=== PATIENT | female | born 1940 | race Caucasian/White ===

== ENCOUNTER → 2017-01-14 | Outpatient (CLI) | payer MEDICARE, OTHER ==
[~2017-01-14] MED LIST: ACET-2422 PO; ALEN70TA47 PO; CALC-857 PO; DOCU100C37 PO; EYE VISION PO; HYDR-3820 PO; LISI-552 PO; METO-272 PO; NF-MAG64T PO; VIT1CAPS9 PO; WARF2.5T82 PO
--- NOTE | 2017-01-14 13:33 | Diagnostic Imaging Report ---
PROCEDURE: US Thyroid. TECHNIQUE: Multiple real-time grayscale images were obtained of the thyroid in various projections. INDICATION: Followup thyroid nodules noted on outside MRI. Comparison: None. DISCUSSION: The thyroid gland is enlarged. The right thyroid measures 5.8 x 2.6 x 2.4 cm. The left thyroid measures 4.6 x 1.2 x 1.7 cm. An isoechoic solid nodule within the right thyroid lobe measures 1.5 x 1.2 x 1.7 cm and is indeterminate by ultrasound criteria. No internal color Doppler blood flow or suspicious microcalcifications. A 5 mm cyst within the right thyroid lobe is statistically benign. A 1 cm hypoechoic solid nodule with brisk internal color Doppler blood flow is located within the left thyroid gland. No abnormal adjacent lymph node is identified. IMPRESSION: Enlargement of the thyroid gland with dominant bilateral thyroid nodules. At a minimum, recommend a 6 month sonographic followup to document stability. A thyroid uptake scan could also be performed to assess for a hot or cold nodule. The nodule on the right is large enough for an ultrasound guided fine needle aspiration if clinically indicated. The nodule on the left is not large enough for aspiration. Dictated by: Dictated on workstation # [id number]
== END ==
LOC: RAD 11:48
PROVIDERS: ATTEND Orthopaedic Surgery
DX: E04.2 Nontoxic multinodular goiter (principal)
CPT/HCPCS: 76536

== ENCOUNTER → 2017-02-22 | Outpatient (CLI) | payer MEDICARE, OTHER ==
--- NOTE | 2017-02-27 08:24 | ECHOCARDIOGRAPHY REPORT ---
DATE OF SERVICE: 02/22/2017 ATTENDING PHYSICIAN: Dr. Hernandez. ORDERING PHYSICIAN: Dr. Hernandez. PRIMARY PHYSICIAN: Dr. Lawler. INDICATION: Atrial fibrillation, shortness of breath, hypertension. FINDINGS: 1. Sinus rhythm. 2. Left atrial dimensions are enlarged. Right atrial enlargement is also noted. 3. Aortic root dimensions are normal. 4. Left ventricular systolic function is 60%. Mild LVH is present. The diastolic interventricular septal diameter 1.2 cm. 5. There are no wall motion abnormalities. 6. Mild right ventricular enlargement and right atrial enlargement are noted. 7. There is no evidence of pericardial effusion. 8. Mild diastolic dysfunction. 9. IVC is 1.4 cm, which is normal. VALVULAR STRUCTURE OF THE HEART: Mild tricuspid regurgitation with RVSP of 24 mmHg. Mild mitral regurgitation. No significant aortic or pulmonic valve pathology. CONCLUSION: 1. Normal left ventricular ejection fraction with ejection fraction of 60%. 2. Mild concentric left ventricular hypertrophy with left atrial enlargement. 3. Mild right ventricular enlargement and right atrial enlargement. 4. Mild diastolic dysfunction. 5. There is no significant valvular heart disease. 6. Normal PA pressure. Job ID: [id number] DocumentID: [id number] Dictated Date: 02/25/2017 14:23:20 Software Support Engineer Date: 02/25/2017 17:44:33 Dictated By: RAJAT HERNANDEZ MD
== END ==
LOC: CARD 09:29
PROVIDERS: ATTEND Internal Medicine Interventional Cardiology
DX: I48.91 Unspecified atrial fibrillation (principal); I10 Essential (primary) hypertension; R06.02 Shortness of breath
CPT/HCPCS: 93306

== ENCOUNTER → 2017-02-28 | Outpatient (CLI) | payer MEDICARE, OTHER ==
[~2017-02-28] VITALS: Ht 162.6 cm; Wt 74.8 kg
[~2017-02-28] MED LIST changes: +REGADENOSON 0.4 MG/5 ML SYR (LEXISCAN) IV ONE
[2017-02-28] MEDS: CATHETER FLUSH 10 ML SYR IV PRN ×2 (07:54→09:27)
[2017-02-28 09:27] VITALS: BP 154/75
--- NOTE | 2017-03-01 12:50 | STRESS TEST ---
DATE OF SERVICE: 02/28/2017 PHARMACOLOGICAL NUCLEAR STRESS TEST PRIMARY PHYSICIAN: Dr. Lawler. INDICATION: Atrial fibrillation, hypertension, shortness of breath. PROCEDURE DETAILS: The patient was brought to the stress lab after informed consent was taken. The stress test was performed according to the Lexiscan protocol. A 0.4 mg of IV Lexiscan was given. Low grade exercise was performed. Baseline EKG showed sinus rhythm. Heart rate sinus rhythm at 54 BPM. There is mild baseline ST depression noted in the inferior leads. Maximum heart rate is 83 BPM and blood pressure is 154/75 mmHg. There was no significant worsening of ST depression. There was no chest pain. There were no arrhythmias. Myoview 10.60 mCi were given for rest imaging and 30.2 mCi of Myoview were given for stress imaging. Review of the myocardial perfusion imaging shows a TID of 1.02. Ejection fraction of 66%. There is a small mild intensity reversible defect in the anterior wall. However, there is no wall motion abnormality. SSS is 7. SRS is 3 and SDS is 3. CONCLUSION: 1. Pharmacological stress test is negative for ischemia. 2. There is a small reversible defect in the anterior wall; however, with normal wall motion in the anterior wall. This could be an artifact. Clinical correlation is recommended. Job ID: [id number] DocumentID: [id number] Dictated Date: 03/01/2017 09:28:21 Lacquer Pin Press Operator Date: 03/01/2017 10:50:28 Dictated By: RAJAT NGO MD
== END ==
LOC: CARD 07:24
PROVIDERS: ATTEND Internal Medicine Interventional Cardiology
DX: I48.91 Unspecified atrial fibrillation (principal); I10 Essential (primary) hypertension; R06.02 Shortness of breath
CPT/HCPCS: 78452; 93017

== ENCOUNTER 2017-10-18 09:28 | Outpatient (RCR) | payer MEDICARE, OTHER ==
[~2017-10-18 09:28] MED LIST changes: -METO-272 PO; +METO-370 PO; -REGADENOSON 0.4 MG/5 ML SYR (LEXISCAN) IV ONE
[2017-10-22] MEDS ORDERED: FURO20TA4 PO (09:08)
[2017-10-22] MEDS ORDERED: BENZ200C51 PO (09:08)
[2017-10-22] MEDS ORDERED: AMLO5TAB2 PO (09:09)
[2017-10-22] MEDS ORDERED: RIVA20TA PO (09:09)
[2017-10-22] MEDS ORDERED: LISI40TA PO (14:16)
[2017-10-26] MEDS ORDERED: DILT240C63 PO (11:15)
[2017-10-26] MEDS ORDERED: Sotalol Hcl PO (11:15)
[2017-10-31] MEDS ORDERED: SOTA80TA PO (11:55)
[2017-10-31] MEDS ORDERED: DILT240C53 PO (11:56)
[2017-10-31] MEDS ORDERED: BENZ200C51 PO (11:59)
[2017-10-31] MEDS ORDERED: ACET-2650 PO ×2 (12:01)
[2017-10-31] MEDS ORDERED: MAGN64TA11 PO (12:02)
[2017-11-01] MEDS ORDERED: Sotalol Hcl PO (13:12)
[2017-11-01] MEDS ORDERED: CEPH-507 PO (13:13)
== END 2017-10-29 14:30 | disposition home or self-care (01) ==
PROVIDERS: ATTEND Physician Assistant
DX: M54.2 Cervicalgia (principal)

== ENCOUNTER 2017-10-22 08:10 | Inpatient (IN) | payer MEDICARE, OTHER ==
[2017-10-22] VITALS (20 sets, daily range): BP systolic 88–138; BP diastolic 44–88
[~2017-10-22] VITALS: Ht 162.6 cm; Wt 73.9 kg
[2017-10-22] MEDS ORDERED: FURO20TA4 PO (09:08)
[2017-10-22] MEDS ORDERED: BENZ200C51 PO (09:08)
[2017-10-22] MEDS ORDERED: AMLO5TAB2 PO (09:09)
[2017-10-22] MEDS ORDERED: RIVA20TA PO (09:09)
[2017-10-22] MEDS ORDERED: LIDOCAINE 1% INJ 50 ML (XYLOCAINE) VIAL ONE (09:32)
[2017-10-22] MEDS ORDERED: proPOfol 200 MG/20 ML (DIPRIVAN) VIAL IV ONE (09:34)
--- NOTE | 2017-10-22 09:57 | Progress Note-Standard ---
Standard Progress Note Progress Notes/Assess & Plan Date Seen by Provider: Oct 22, 2017 Time Seen by Provider: 09:50 Progress/Assessment & Plan sedation for cardioversion. 40 mg propofol and 2mg versed given. start time 50 end time 58. tolerated procedure well. KIKO ARTHUR CRNA Oct 22, 2017 09:57
[2017-10-22] MEDS ORDERED: SOTALOL 80 MG (BETAPACE) TAB PO ONE (11:15)
[2017-10-22] MEDS ORDERED: NS IV 1000 ML 1,000 ML IV SCH (11:45)
[2017-10-22] MEDS ORDERED: PATIENT MAY USE OWN MEDS, ALL PO SCH (11:45)
--- NOTE | 2017-10-22 11:56 | History & Physicial-Cardiolgy ---
HPI-Cardiology Cardiology Consultation: Date of Consultation 10/22/17 Date of Admission Attending Physician Dylan Hernandez MD Admitting Physician Todd Lawler MD Consulting Physician Dylan HERNANDEZ MD HPI: Time Seen by Provider: 11:00 Chief Complaint: Atrial fibrillation with rapid ventricular rate This is a 77-year-old lady who is a patient of Dr. Lawler. She has previous history of cervical spine surgery. She also has history of atrial fibrillation which started in 2001. She has history of hypertension. She has rare episodes of shortness of breath. No chest pain. She usually has atrial fibrillation episodes are around once a month and takes an extra dose of metoprolol which helps. She has been complaining of shortness of breath and fatigue in the last few days. She is also increased weight for which she saw Dr. Lawler and was started on Lasix. She denies any significant palpitations. Review of Systems-Cardiology Review of Systems Constitutional: No As described under HPI, No no symptoms reported, No chills, No fever, No lightheadedness, malaise, No tiredness, No weight loss, weight gain , No other Eyes: No As described under HPI, No no symptoms reported, No blindness, No blurred vision, No contact lenses, No drainage, No decreased acuity, No foreign body sensation, No glasses, No inflammation, No pain, No photophobia, No previous injury, No shadows, No tunnel vision, No other, No vision change Ears/Nose/Throat: No As described under HPI, No no symptoms reported, No chronic hearing loss, No epistaxis, No ear discharge, No ear pain, No loose teeth, No mouth pain, No mouth swelling, No nasal drainage, No nose pain, No recent hearing loss, No throat pain, No throat swelling, No ulcerations, No other Respiratory: shortness of breath Cardiovascular: No no symptoms reported, No As described under HPI, No chest pain, No edema, No irregular heart rate, No lightheadedness, No palpitations, No syncope, No other Gastrointestinal: No no symptoms reported, No As described under HPI, No abdomen distended, No abdominal pain, No blood streaked bowels, No constipation , No diarrhea, No difficulty swallowing, No nausea, No poor appetite, No poor fluid intake, No rectal bleeding, No vomiting, No other, No nausea/vomiting/ diarrhea, No stool coloration changes Genitourinary: No no symptoms reported, No As described under HPI, No burning, No dysuria, No discharge, No frequency, No flank pain, No hematuria, No incontinence, No pain, No urgency, No other, No urine frequency changes, No urine coloration changes Musculoskeletal: No no symptoms reported, No As describe under HPI, No back pain, No gout, No joint pain, No joint swelling, No muscle pain, No muscle stiffness, No neck pain, No other Skin: No no symptoms reported, No As described under HPI, No change in color, No change in hair/nails, No dryness, No lesions, No lumps, No rash, No other, No skin related problems, No ulcerations, No rash on exposed areas, No ulcerations on exposed areas Psychiatric/Neurological: No no symptoms reported, No As described under HPI, No anxiety, No depression, No emotional problems, No headache, No numbness, No pre-existing deficit, No seizure, No tingling, No tremors, No weakness, No other , No focal weakness, No syncope Hematologic: No no symptoms reported, No As described under HPI, No anemia, No blood clots, No easy bleeding, No easy bruising, No swollen glands, No other, No bleeding abnormalities KAH-Vlxbpy-Xyjkly Hx Patient Social History Smoking Status: Never a Smoker Recent Foreign Travel: No Recent Infectious Disease Expo: No Immunizations Up To Date Tetanus Booster (TDap): More than 5yrs Date of Pneumonia Vaccine: Jun 22, 2013 Date of Influenza Vaccine: Jul 22, 2017 Past Medical History PMH As described under Assessment. Family Medical History Family History: Cataracts 19 FATHER Completed stroke 19 MOTHER FH: prostate cancer Hypertension 19 FATHER Osteoarthritis 19 MOTHER Prostate cancer 19 FATHER Allergies and Home Medications Allergies Coded Allergies: No Known Drug Allergies (Unverified , 08/03/11) Home Medications Alendronate Sodium 70 Mg Tablet, 70 MG PO WEEKLY ON saturday, (Reported) Amlodipine Besylate 5 Mg Tablet, 5 MG PO DAILY, (Reported) Benzonatate 200 Mg Capsule, 200 MG PO q 8 hours PRN for COUGH, (Reported) Furosemide 20 Mg Tablet, 20 MG PO DAILY, (Reported) Lisinopril 20 Mg Tablet, 40 MG PO DAILY, (Reported) take two pills for total of 40 mg Magnesium Chloride 64 Mg Tab, 64 MG PO DAILY, (Reported) Metoprolol Succinate 50 Mg Tab.er.24h, 25 MG PO DAILY, (Reported) take half tablet for 25 mg Rivaroxaban 20 Mg Tablet, 20 MG PO DAILY, (Reported) Vit C/Vit E/Lutein/Min/[place]-3 1 Each Capsule, 1 CAP PO DAILY, (Reported) Physical Exam-Cardiology Physical Exam Vital Signs/I&O Vital Sign - Last 12Hours 10/22/17 10/22/17 10/22/17 10/22/17 08:56 09:40 09:45 09:50 Temp 98.9 Pulse 137 142 148 149 Resp 20 B/P (MAP) 117/85 (96) 122/78 (93) 104/72 (83) 88/60 (69) Pulse Ox 98 100 100 99 O2 Delivery Nasal Cannula Nasal Cannula Nasal Cannula O2 Flow Rate 3.00 3.00 3.00 10/22/17 09:55 Pulse 136 B/P (MAP) 96/66 (76) Pulse Ox 98 O2 Delivery Nasal Cannula O2 Flow Rate 3.00 Capillary Refill : Constitutional: No appears stated age, No AAO x 3, No apparent distress, No PERRL, No well-developed, No well-nourished, No other HEENT: No PERRL, No normal ENT inspection, No TMs normal, No pharynx normal, No scleral icterus (R), No scleral icterus (L), No pale conjunctivae (R), No pale conjunctivae (L), No photophobia, No TM abnormal (R), No TM abnormal (L), No pharyngeal erythema, No tonsillar exudate, No other, No discharge, No EOMI, No hearing is well preserved, No hard of hearing, No oral hygience is good, No ulceration, No xanthelasmas are seen Neck: No non-tender, No full range of motion, No supple, No normal inspection, No carotid bruit, No limited range of motion, No lymphadenopathy (R), No lymphadenopathy (L), No tender lateral, No tender midline, No thyromegaly, No other, No carotid pulses are 2 + bilaterally, No with good upstrokes Respiratory: No accessory muscle use, No respiratory distress, No chest tender , No chest expansion is symmetric, No chest is bilaterally symmetric, No lungs clear to percussion, No lungs clear to auscultation, No crackles, No rhonchi, No rales, No stridor, No wheezing, No pleural rub, No other Cardiovascular: irregularly irregular, tachycardia, S1 and S2 Gastrointestinal: No tender, No soft, No round, No distended, No pulsatile mass , No organomegaly, No guarding, No rebound, No tenderness, No hernia, No mass, No audible bowel sounds, No abnormal bowel sounds, No abdominal bruits, No spleenomegaly, No other Rectal: deferred Extremities: No normal range of motion, No non-tender, No normal inspection, No pedal edema, No calf tenderness, No normal capillary refill, No pelvis stable , No calf tenderness, No inflammation, No pedal edema, No slow capillary refill , No swelling, No other, No abrasion, No clubbing, No cyanosis, No ecchymosis, No laceration, No no lower extremity edema bilateral, No significant edema, No tenderness, No wound Neurologic/Psychiatric: No core fitter II-XII nml as tested, No no motor/sensory deficits, No alert, No normal mood/affect, No oriented x 3, No abnormal cerebellar tests, No abnormal core fitter II-XII, No abnormal gait, No aphasia, No EOM palsy, No facial droop, No motor weakness, No sensory deficit, No depressed affect, No disoriented x 3, No other, No grossly intact, No power is 5/5 both on sides Skin: No normal color, No warm/dry, No cyanosis, No cool, No diaphoresis, No damp, No ecchymosis, No jaundice, No mottled, No pallor, No rash, No tattoos/ piercings, No ulcerations, No rash on exposed areas, No ulcerations on exposed areas, No other ECG Impression ECG Initial ECG Impression: Atrial Fibrillation w/RVR A/P-Cardiology Assessment/Admission Diagnosis Atrial fibrillation with rapid ventricular rate, Hypertension, Sinus bradycardia Plan 3 attempts of electrical cardioversion which did not convert the patient to sinus rhythm. Implantable loop recorder done since we need rhythm control and long-term surveillance of atrial fibrillation. She'll be admitted for IV Cardizem and sotalol loading. We'll start with 80 mg of sotalol twice a day. EKGs will be done before sotalol and 2 Vin after. We will attempt cardioversion again on sotalol. She will continue beta jaspreet as well as Xarelto. Ex Hypertension will be treated with amlodipine. Lower extremity edema: Continue Lasix. Dylan HERNANDEZ MD Oct 22, 2017 11:56 am
--- OUTSIDE RECORDS SUMMARY | 2017-10-22 12:01 | XMS REPORT | Continuity of Care Document ---
Author Author [facility] Organization [facility] Address Unknown Phone Unavailable Allergies Active Description Code Type Severity Reaction Onset Reported/Identified Relationship to Patient Clinical Status Yes No Known Drug Allergies [id number] Drug Allergy Unknown N/A 08/03/2011 Medications There is no data. Problems Date Dx Coded Attending Type Code Diagnosis Diagnosed By 08/29/1009 SAVANNAH ENCARNACION DO Ot Z47.1 08/29/1009 SAVANNAH ENCARNACION DO Ot Z96.651 08/03/2011 Ot 455.0 INT HEMORRHOID W/O COMPL 08/03/2011 Ot 562.10 DIVERTICULOSIS COLON (W/O MENT OF HEMORR 08/03/2011 Ot 564.00 UNSPEC CONSTIPATION 08/03/2011 Ot 792.1 ABN FIND- STOOL CONTENTS 02/14/2015 Ot V76.12 02/14/2015 Ot 733.00 02/14/2015 Ot V49.81 02/14/2015 Ot V76.12 02/14/2015 Ot V82.81 02/14/2015 Ot V76.12 02/14/2015 ARTI KELSEY, KAMILAH Garcia Ot V76.12 02/14/2015 ARTI KELSEY, KAMILAH Garcia Ot 733.00 02/14/2015 ARTI KELSEY, KAMILAH Garcia Ot V17.81 02/14/2015 ARTI KELSEY, KAMILAH Garcia Ot V82.81 02/14/2015 ARTI KELSEY, KAMILAH Garcia Ot V76.12 02/14/2015 ARTI KELSEY, KAMILAH Garcia Ot 427.9 02/28/2015 ARTI KELSEY, KAMILAH Garcia Ot 427.9 03/15/2015 ARTI KELSEY, KAMILAH Garcia Ot 427.9 03/22/2015 ARTI KELSEY, KAMILAH Garcia Ot 427.31 03/24/2015 ARTI KELSEY, KAMILAH Garcia Ot 427.31 06/21/2015 Ot V76.12 06/21/2015 Ot 733.00 06/21/2015 Ot V49.81 06/21/2015 Ot V76.12 06/21/2015 Ot V82.81 06/21/2015 Ot V76.12 06/21/2015 ARTI KELSEY, KAMILAH Garcia Ot V76.12 06/21/2015 ARTI KELSEY, KAMILAH Garcia Ot 733.00 06/21/2015 ARTI KELSEY, KAMILAH Garcia Ot V17.81 06/21/2015 ARTI KELSEY, KAMILAH Garcia Ot V82.81 06/21/2015 ARTI KELSEY, KAMILAH Garcia Ot V76.12 06/21/2015 ARTI KELSEY, KAMILAH Garcia Ot 427.9 06/21/2015 ARTI KELSEY, KAMILAH Garcia Ot 427.31 06/21/2015 SHASHANK DO, SAVANNAH F Ot V58.61 06/21/2015 SHASHANK DO, SAVANNAH F Ot V58.83 06/21/2015 SHASHANK DO, SAVANNAH F Ot V43.65 06/21/2015 SHASHANK DO, SAVANNAH F Ot V54.81 06/21/2015 SHASHANK DO, SAVANNAH F Ot V57.1 06/22/2015 SHASHANK DO, SAVANNAH F Ot V58.61 06/22/2015 SHASHANK DO, SAVANNAH F Ot V58.83 06/27/2015 ARTI KELSEY, KAMILAH Garcia Ot 285.1 06/27/2015 ARTI KELSEY, KAMILAH Garcia Ot 401.9 06/27/2015 ARTI KELSEY, KAMILAH Garcia Ot 427.31 06/27/2015 ARTI KELSEY, KAMILAH Garcia Ot 564.00 06/27/2015 ARTI KELSEY, KAMILAH Garcia Ot 716.90 06/27/2015 ARTI KELSEY, KAMILAH Garcia Ot 724.00 06/27/2015 ARTI KELSEY, KAMILAH Garcia Ot 728.89 06/27/2015 ARTI KELSEY, KAMILAH Garcia Ot 733.00 06/27/2015 ARTI KELSEY, KAMILAH Garcia Ot 787.01 06/27/2015 ARTI KELSEY, KAMILAH Garcia Ot 790.92 06/27/2015 ARTI KELSEY, KAMILAH Garcia Ot E934.2 06/27/2015 ARTI KELSEY, KAMILAH Garcia Ot V43.65 06/27/2015 ARTI KELSEY, KAMILAH Garcia Ot V58.61 06/28/2015 ARTI KELSEY, KAMILAH Garcia Ot 285.1 06/28/2015 ARTI KELSEY, KAMILAH Garcia Ot 401.9 06/28/2015 ARTI KELSEY, KAMILAH Garcia Ot 427.31 06/28/2015 ARTI KELSEY, KAMILAH Garcia Ot 564.00 06/28/2015 ARTI KELSEY, KAMILAH Garcia Ot 716.90 06/28/2015 ARTI KELSEY, KAMILAH Garcia Ot 724.00 06/28/2015 ARTI KELSEY, KAMILAH Garcia Ot 728.89 06/28/2015 ARTI KELSEY, KAMILAH Garcia Ot 733.00 06/28/2015 ARTI KELSEY, KAMILAH Garcia Ot 787.01 06/28/2015 ARTI KELSEY, KAMILAH Garcia Ot 790.92 06/28/2015 ARTI KELSEY, KAMILAH Garcia Ot E934.2 06/28/2015 ARTI KELSEY, KAMILAH Garcia Ot V43.65 06/28/2015 ARTI KELSEY, KAMILAH Garcia Ot V58.61 06/28/2015 ARTI KELSEY, KAMILAH Garcia Ot 285.1 06/28/2015 ARTI KELSEY, KAMILAH Garcia Ot 401.9 06/28/2015 ARTI KELSEY, KAMILAH Garcia Ot 427.31 06/28/2015 ARTI KELSEY, KAMILAH Garcia Ot 564.00 06/28/2015 ARTI KELSEY, KAMILAH Garcia Ot 716.90 06/28/2015 ARTI KELSEY, KAMILAH Garcia Ot 724.00 06/28/2015 ARTI KELSEY, KAMILAH Garcia Ot 728.89 06/28/2015 ARTI KELSEY, KAMILAH Garcia Ot 733.00 06/28/2015 ARTI KELSEY, KAMILAH Garcia Ot 787.01 06/28/2015 ARTI KELSEY, KAMILAH Garcia Ot 790.92 06/28/2015 ARTI KELSEY, KAMILAH Garcia Ot E934.2 06/28/2015 ARTI KELSEY, KAMILAH Garcia Ot V43.65 06/28/2015 ARTI KELSEY, KAMILAH Garcia Ot V58.61 06/29/2015 SHASHANK , SAVANNAH F Ot V43.65 KNEE JOINT REPLACEMENT STATUS 06/29/2015 SHASAHNK DO, SAVANNAH F Ot V54.81 AFTERCARE FOLLOWING JOINT REPLACEMENT 06/29/2015 SHASHANK COBB, SAVANNAH F Ot V57.1 PHYSICAL THERAPY NEC 06/29/2015 ARTI KELSEY, KAMILAH Garcia Ot 285.1 06/29/2015 ARTI KELSEY, KAMILAH Garcia Ot 401.9 06/29/2015 ARTI KELSEY, KAMILAH Garcia Ot 427.31 06/29/2015 ARTI KELSEY, KAMILAH Garcia Ot 564.00 06/29/2015 ARTI KELSEY, KAMILAH Garcia Ot 716.90 06/29/2015 KAMILAH CHI MD Ot 724.00 06/29/2015 KAMILAH CHI MD Ot 728.89 06/29/2015 KAMILAH CHI MD Ot 733.00 06/29/2015 KAMILAH CHI MD Ot 787.01 06/29/2015 KAMILAH CHI MD Ot 790.92 06/29/2015 KAMILAH CHI MD Ot E934.2 06/29/2015 KAMILAH CHI MD Ot V43.65 06/29/2015 KAMILAH CHI MD Ot V58.61 06/29/2015 SHASHANK DO, SAVANNAH F Ot V43.65 06/29/2015 SHASHANK DO, SAVANNAH F Ot V54.81 06/29/2015 SHASHANK DO, SAVANNAH F Ot V57.1 06/29/2015 ARTI KELSEY, KAMILAH Garcia Ot 285.1 AC POSTHEMORRHAG ANEMIA 06/29/2015 KAMILAH CHI MD Ot 401.9 HYPERTENSION NOS 06/29/2015 ARTI KELSEY, KAMILAH Garcia Ot 427.31 ATRIAL FIBRILLATION 06/29/2015 KAMILAH CHI MD Ot 564.00 UNSPEC CONSTIPATION 06/29/2015 KAMILAH CHI MD Ot 716.90 ARTHROPATHY NOS-UNSPEC 06/29/2015 KAMILAH CHI MD Ot 724.00 SPINAL STENOSIS NOS 06/29/2015 KAMILAH CHI MD Ot 728.89 MUSCLE/LIGAMENT DIS NEC 06/29/2015 KAMILAH CHI MD Ot 733.00 OSTEOPOROSIS NOS 06/29/2015 KAMILAH CHI MD Ot 787.01 NAUSEA WITH VOMITING 06/29/2015 KAMILAH CHI MD Ot 790.92 COAGULATION PROFILE, ABNORMAL 06/29/2015 KAMILAH CHI MD Ot E934.2 ADV EFF ANTICOAGULANTS 06/29/2015 KAMILAH CHI MD Ot V43.65 KNEE JOINT REPLACEMENT STATUS 06/29/2015 KAMILAH CHI MD Ot V58.61 ANTICOAGULANTS,LT,CURRENT USE 07/11/2015 SHASHANK DO, SAVANNAH F Ot V43.65 07/11/2015 SHASHANK DO, SAVANNAH F Ot V54.81 07/11/2015 SHASHANK DO, SAVANNAH F Ot V57.1 08/29/2015 SHASHANK DO, SAVANNAH F Ot Z47.1 08/29/2015 SHASHANK DO, SAVANNAH F Ot Z96.651 09/01/2015 SAVANNAH ENCARNACION DO Ot Z47.1 09/01/2015 SAVANNAH ENCARNACION DO Ot Z96.651 09/28/2015 SHASHANK COBB SAVANNAH Rodriguez Ot Z47.1 AFTERCARE FOLLOWING JOINT REPLACEMENT TAVARES 09/28/2015 SAVANNAH ENCARNACION DO Ot Z96.651 PRESENCE OF RIGHT ARTIFICIAL KNEE JOINT 01/14/2017 Ot V76.12 OTH SCREEN MAMMO-MALIGN NEOPLASM OF SILVER 01/14/2017 KAMILAH CHI MD Ot V76.12 OTH SCREEN MAMMO-MALIGN NEOPLASM OF SILVER 01/14/2017 KAMILAH CHI MD Ot 733.00 OSTEOPOROSIS NOS 01/14/2017 ARTI KELSEY, KAMILAH Garcia Ot V17.81 FAMILY HISTORY, OSTEOPOROSIS 01/14/2017 KAMILAH CHI MD Ot V82.81 SCREENING FOR OSTEOPOROSIS 01/14/2017 KAMILAH CHI MD Ot V76.12 OTH SCREEN MAMMO-MALIGN NEOPLASM OF SILVER 01/14/2017 KAMILAH CHI MD Ot 427.9 CARDIAC DYSRHYTHMIA NOS 01/14/2017 KAMILAH CHI MD Ot 427.31 ATRIAL FIBRILLATION 01/14/2017 SHASHANK COBB SAVANNAH Rodriguez Ot V58.61 ANTICOAGULANTS,LT,CURRENT USE 01/14/2017 SHASHANK COBB SAVANNAH Rodriguez Ot V58.83 ENCOUNTER FOR THERAPEUTIC DRUG MONITORIN 02/12/2017 MODESTO MATHIAS DO Ot E04.2 NONTOXIC MULTINODULAR GOITER 03/01/2017 Dylan NGO MD Ot I10 ESSENTIAL (PRIMARY) HYPERTENSION 03/01/2017 Dylan NGO MD Ot I48.91 UNSPECIFIED ATRIAL FIBRILLATION 03/01/2017 Dylan NGO MD Ot R06.02 SHORTNESS OF BREATH 03/01/2017 Dylan NGO MD Ot I10 ESSENTIAL (PRIMARY) HYPERTENSION 03/01/2017 Dylan NGO MD Ot I48.91 UNSPECIFIED ATRIAL FIBRILLATION 03/01/2017 Dylan NGO MD Ot R06.02 SHORTNESS OF BREATH 03/01/2017 Dylan NGO MD Ot I10 ESSENTIAL (PRIMARY) HYPERTENSION 03/01/2017 Dylan NGO MD Ot I48.91 UNSPECIFIED ATRIAL FIBRILLATION 03/01/2017 HUBER KELSEY, Dylan MEEK Ot R06.02 SHORTNESS OF BREATH 03/01/2017 Dylan NGO MD Ot I10 ESSENTIAL (PRIMARY) HYPERTENSION 03/01/2017 Dylan NGO MD Ot I48.91 UNSPECIFIED ATRIAL FIBRILLATION 03/01/2017 Dylan NGO MD Ot R06.02 SHORTNESS OF BREATH 03/01/2017 Dylan NGO MD Ot I10 ESSENTIAL (PRIMARY) HYPERTENSION 03/01/2017 Dylan NGO MD Ot I48.91 UNSPECIFIED ATRIAL FIBRILLATION 03/01/2017 Dylan NGO MD Ot R06.02 SHORTNESS OF BREATH 03/15/2017 Dylan NGO MD Ot I10 ESSENTIAL (PRIMARY) HYPERTENSION 03/15/2017 Dylan NGO MD Ot I48.91 UNSPECIFIED ATRIAL FIBRILLATION 03/15/2017 Dylan NGO MD Ot R06.02 SHORTNESS OF BREATH 03/21/2017 Dylan NGO MD Ot I10 ESSENTIAL (PRIMARY) HYPERTENSION 03/21/2017 Dylan NGO MD Ot I48.91 UNSPECIFIED ATRIAL FIBRILLATION 03/21/2017 Dylan NGO MD Ot R06.02 SHORTNESS OF BREATH 10/10/2017 CARLOS GRADY Ot M54.2 CERVICALGIA Procedures There is no data. Results There is no data. Encounters ACCT No. Visit Date/Time Discharge Status Pt. Type Provider Facility Loc./Unit Complaint [id number] 10/18/2017 09:28:00 10/18/2017 23:59:59 CLS Outpatient CARLOS GRADY [facility] REHAB NECK PAIN [id number] 02/28/2017 07:24:00 02/28/2017 23:59:59 CLS Outpatient Dylan NGO MD [facility] CARD I48.91,I10,R06.02 [id number] 02/22/2017 09:29:00 02/22/2017 23:59:59 CLS Outpatient Dylan NGO MD [facility] CARD I48.91,I10,R06.02 [id number] 01/14/2017 11:48:00 01/14/2017 23:59:59 CLS Outpatient MODESTO MATHIAS DO [facility] RAD NODULES [id number] 09/28/2015 09:30:00 09/28/2015 10:10:00 DIS Outpatient SHASHANK DO SAVANNAH Rodriguez [facility] REHAB DJD S/P L TKR [id number] 06/21/2015 23:15:00 06/29/2015 16:49:00 DIS Inpatient KAMILAH CHI MD [facility] 4TH INTRACTABLE L SCIATICA PAIN;EXCESSIVE BRUISING; [id number] 06/17/2015 12:53:00 06/29/2015 00:01:00 DIS Outpatient SHASHANK DO, SAVANNAH Rodriguez [facility] REHAB DJD S/P L TKR [id number] 06/02/2015 13:15:00 06/02/2015 23:59:59 CLS Outpatient SHASHANKSAVANNAH GRANADOS DO Jennifer [facility] HH ANTICOAG THERAPY [id number] 02/14/2015 10:06:00 02/14/2015 23:59:59 CLS Outpatient KAMILAH CHI MD [facility] CARD ACUTE AFIB [id number] 02/10/2015 10:49:00 02/10/2015 23:59:59 CLS Outpatient KAMILAH CHI MD [facility] CARD AFIB [id number] 05/13/2014 09:49:00 05/13/2014 23:59:59 CLS Outpatient KAMILAH CHI MD [facility] RAD SCREENING [id number] 03/04/2014 09:30:00 03/04/2014 23:59:59 CLS Outpatient KAMILAH CHI MD [facility] RAD OSTEOPOROSIS [id number] 05/07/2013 10:18:00 05/07/2013 23:59:59 CLS Outpatient KAMILAH CHI MD [facility] RAD SCREENING [id number] 10/22/2017 09:58:00 Document Registration [id number] 02/14/2015 10:05:00 Document Registration [id number] 04/28/2012 10:29:00 Document Registration [id number] 08/03/2011 07:46:00 Document Registration [id number] 04/26/2011 10:40:00 Document Registration
--- NOTE | 2017-10-22 13:02 | OPERATIVE REPORT ---
DATE OF SERVICE: 10/22/2017 CARDIOVERSION REPORT REFERRING PHYSICIAN: Todd Lawler M.D. PERFORMING PHYSICIAN: Luci Hernandez M.D. INDICATION: Atrial fibrillation with rapid ventricular rate. HISTORY: This is a 77-year-old lady with history of paroxysmal atrial fibrillation. However, she has been in sinus rhythm recently. However, she started complaining of fatigue and shortness of breath in the last couple of days and was found to be in atrial fibrillation with rapid ventricular rate. Her metoprolol dose was increased. No significant response was noted. She continues to be on uninterrupted oral anticoagulation therapy for at least a month. PROCEDURE IN DETAIL: The patient was brought to the clinical laboratory manager after informed consent was taken. Cardioversion was performed with anesthesia support. Three external 200 joule synchronized shocks were given; however, we were unsuccessful in converting the patient to sinus rhythm. The patient tolerated procedure well, did not have any complication. CONCLUSION: 1. Three shocks given for cardioversion; however, could not convert to sinus rhythm. 2. The patient will be admitted via the ER for sotalol initiation as well as Cardizem infusion. Job ID: [id number] DocumentID: [id number] Dictated Date: 10/22/2017 10:27:35 Placement Officer Date: 10/22/2017 13:02:07 Dictated By: LUCI HERNANDEZ MD MTDD
[2017-10-22] MEDS: DILTIAZEM IV SCH ×2 (13:04)
[2017-10-22] MEDS: DEXTROSE IV SCH ×2 (13:04)
--- NOTE | 2017-10-22 13:12 | OPERATIVE REPORT ---
DATE OF SERVICE: 10/22/2017 IMPLANTABLE LOOP RECORDER REPORT REFERRING PHYSICIAN: Todd Lawler M.D. PERFORMING PHYSICIAN: Luci Hernandez MD INDICATION: Long-term surveillance of atrial fibrillation. HISTORY: The patient is a 77-year-old lady with history of paroxysmal atrial fibrillation. She has presented with shortness of breath and fatigue in the last few days and was found to be in atrial fibrillation with rapid ventricular rate. The plan is of rhythm control to convert her into sinus rhythm and do long-term surveillance with an implantable loop recorder. PROCEDURE PERFORMED: Implantable loop recorder. PROCEDURE IN DETAIL: The patient was brought to the EP lab after informed consent was taken. She was draped and prepped in the usual sterile fashion. Lidocaine was given in the left sided 4th intercostal space. An implantable loop recorder from [employer] was implanted according to the protocol. The incision was closed with 2 nonabsorbable sutures. The patient tolerated the procedure well, did not have any complications. CONCLUSION: Successful implantation of a [employer] loop recorder. Job ID: [id number] DocumentID: [id number] Dictated Date: 10/22/2017 10:29:59 Senior Art Director Date: 10/22/2017 13:11:29 Dictated By: LUCI HERNANDEZ MD MTDD
[2017-10-22 13:58] LABS: HEMOGLOBIN 12.2 G/DL (11.5-16.0); MEAN PLATELET VOLUME 12.2 FL (7.4-10.4); RED BLOOD COUNT 4.51 10^6/uL (4.35-5.85); RED CELL DISTRIBUTION WIDTH 14.8 % (10.0-14.5); WHITE BLOOD COUNT 7.7 10^3/uL (4.3-11.0)
[2017-10-22 14:13] LABS: BUN/CREATININE RATIO 19; CALCIUM 8.9 MG/DL (8.5-10.1); CARBON DIOXIDE 23 MMOL/L (21-32); CHLORIDE 107 MMOL/L (98-107); CREATININE SERUM 0.81 MG/DL (0.60-1.30); GFR ESTIMATED > 60; GLUCOSE 103 MG/DL (70-105); POTASSIUM 3.6 MMOL/L (3.6-5.0); SODIUM 141 MMOL/L (135-145)
[2017-10-22] MEDS ORDERED: LISI40TA PO (14:16)
[2017-10-22] MEDS: NS IV 1000 ML 1,000 ML IV SCH (20:53)
[2017-10-23] VITALS (24 sets, daily range): BP systolic 96–122; BP diastolic 66–98
[2017-10-23] MEDS: DILTIAZEM IV SCH ×6 (01:59→17:58)
[2017-10-23] MEDS: DEXTROSE IV SCH ×6 (01:59→17:58)
[2017-10-23] MEDS: NS IV 1000 ML 1,000 ML IV SCH (06:15)
[2017-10-23] MEDS ORDERED: RIVAROXABAN 20 MG TABLET (XARELTO) PO SCH (08:00)
[2017-10-23] MEDS ORDERED: meTOproloL SUCCINATE 50 MG (TOPROL XL) TAB PO SCH (09:00)
[2017-10-23] MEDS: lisINopril 20 MG (ZESTRIL) TAB PO SCH (09:35)
[2017-10-23] MEDS: amLODIPine 5 MG (NORVASC) TAB PO SCH (09:36)
[2017-10-23] MEDS: FUROSEMIDE 20 MG (LASIX) TAB PO SCH (09:36)
--- NOTE | 2017-10-23 09:55 | Cardiology Progress Note ---
Cardiology SOAP Progress Note Subjective: No significant cardiac symptoms. Objective: I&O/Vital Signs Vital Sign - Last 12Hours 10/22/17 10/23/17 10/23/17 10/23/17 23:00 00:00 01:00 01:00 Pulse 111 116 109 106 Resp 32 26 37 B/P (MAP) 110/71 (84) 115/95 (102) 122/89 (100) Pulse Ox 93 92 93 O2 Delivery Room Air Room Air Room Air 10/23/17 10/23/17 10/23/17 10/23/17 01:59 02:00 03:00 04:00 Pulse 94 110 100 93 Resp 32 43 38 B/P (MAP) 122/89 114/88 (97) 114/81 (92) 113/74 (87) Pulse Ox 92 93 94 O2 Delivery Room Air Room Air Room Air 10/23/17 10/23/17 10/23/17 10/23/17 05:00 06:00 07:00 07:00 Pulse 90 89 112 12 Resp 33 31 29 B/P (MAP) 108/78 (88) 112/87 (95) 111/71 (84) Pulse Ox 93 94 96 O2 Delivery Room Air Room Air Room Air 10/23/17 08:10 O2 Delivery Nasal Cannula O2 Flow Rate 2.00 Intake and Output 10/22/17 23:59 Intake Total 1680 ml Output Total 200 ml Balance 1480 ml Weight (Pounds): 163 Weight (Ounces): 0.0 Weight (Calculated Kilograms): 73.729659 Constitutional: No appears stated age, No AAO x 3, No apparent distress, No PERRL, No well-developed, No well-nourished, No other Respiratory: No accessory muscle use, No respiratory distress, No chest tender , No chest expansion is symmetric, No chest is bilaterally symmetric, No lungs clear to percussion, No lungs clear to auscultation, No crackles, No rhonchi, No rales, No stridor, No wheezing, No pleural rub, No other Cardiovascular: irregularly irregular, tachycardia, S1 and S2 Gastrointestional: No tender, No soft, No round, No distended, No pulsatile mass, No organomegaly, No guarding, No rebound, No tenderness, No hernia, No mass, No audible bowel sounds, No abnormal bowel sounds, No abdominal bruits, No spleenomegaly, No other Extremities: No normal range of motion, No non-tender, No normal inspection, No pedal edema, No calf tenderness, No normal capillary refill, No pelvis stable , No calf tenderness, No inflammation, No pedal edema, No slow capillary refill , No swelling, No other, No abrasion, No clubbing, No cyanosis, No ecchymosis, No laceration, No no lower extremity edema bilateral, No significant edema, No tenderness, No wound Neurologic/Psychiatric: No skip load driver II-XII nml as tested, No no motor/sensory deficits, No alert, No normal mood/affect, No oriented x 3, No abnormal cerebellar tests, No abnormal skip load driver II-XII, No abnormal gait, No aphasia, No EOM palsy, No facial droop, No motor weakness, No sensory deficit, No depressed affect, No disoriented x 3, No other, No grossly intact, No power is 5/5 both on sides Skin: No normal color, No warm/dry, No cyanosis, No cool, No diaphoresis, No damp, No ecchymosis, No jaundice, No mottled, No pallor, No rash, No tattoos/ piercings, No ulcerations, No rash on exposed areas, No ulcerations on exposed areas, No other Results/Procedures: Labs Laboratory Tests 10/22/17 13:45: White Blood Count 7.7, Red Blood Count 4.51, Hemoglobin 12.2, Hematocrit 38, Mean Corpuscular Volume 84, Mean Corpuscular Hemoglobin 27, Mean Corpuscular Hemoglobin Concent 32, Red Cell Distribution Width 14.8H, Platelet Count 195, Mean Platelet Volume 12.2H, Sodium Level 141, Potassium Level 3.6, Chloride Level 107, Carbon Dioxide Level 23, Anion Gap 11, Blood Urea Nitrogen 15, Creatinine 0.81, Estimat Glomerular Filtration Rate > 60, BUN/Creatinine Ratio 19, Glucose Level 103, Calcium Level 8.9 A/P: Assessment/Dx: Atrial fibrillation with rapid ventricular rate, Hypertension, Sinus bradycardia Plan: 3 attempts of electrical cardioversion which did not convert the patient to sinus rhythm. Implantable loop recorder done since we need rhythm control and long-term surveillance of atrial fibrillation. She'll be admitted for IV Cardizem and sotalol loading. Sotalol 80 mg was started yesterday. Heart rate is better controlled. However she still in atrial fibrillation. EKGs will be done as per protocol for sotalol which include EKG before and then to 2 hours after sotalol. We will continue to monitor QTc interval. If she stays in atrial fibrillation we may consider cardioverting her again tomorrow. Hypertension will be treated with amlodipine. Lower extremity edema: Continue Lasix. Thank you for your consultation. Please call me if you have any questions. Taj Hernandez MD, FACP, FACC, FSCAI, FHRS, CCDS Interventional Cardiology Cardiac Electrophysiology Vascular Medicine and Endovascular Interventions Dylan HERNANDEZ MD Oct 23, 2017 09:55
[2017-10-23] MEDS: RIVAROXABAN 20 MG TABLET (XARELTO) PO SCH (18:00)
[2017-10-23] MEDS ORDERED: SOTALOL 80 MG (BETAPACE) TAB PO NR (18:45)
[2017-10-24] VITALS (27 sets, daily range): BP systolic 88–118; BP diastolic 63–89
[2017-10-24 04:41] LABS: BASOPHILS % (AUTO) 1 % (0-10); EOSINOPHILS # (AUTO) 0.4 10^3/uL (0.0-0.3); EOSINOPHILS % (AUTO) 7 % (0-10); HEMATOCRIT 36 % (35-52); HEMOGLOBIN 11.5 G/DL (11.5-16.0); LYMPHOCYTES # (AUTO) 1.1 X 10^3 (1.0-4.0); LYMPHOCYTES % (AUTO) 21 % (12-44); MEAN CORPUSCULAR HEMOGLOBIN 27 PG (25-34); MEAN CORPUSCULAR HGB CONC 32 G/DL (32-36); MEAN CORPUSCULAR VOLUME 84 FL (80-99); MEAN PLATELET VOLUME 12.5 FL (7.4-10.4); MONOCYTES # (AUTO) 0.9 X 10^3 (0.0-1.0); MONOCYTES % (AUTO) 16 % (0-12); NEUTROPHILS # (AUTO) 3.1 X 10^3 (1.8-7.8); NEUTROPHILS % (AUTO) 56 % (42-75); PLATELET COUNT 177 10^3/uL (130-400); RED BLOOD COUNT 4.22 10^6/uL (4.35-5.85); RED CELL DISTRIBUTION WIDTH 14.7 % (10.0-14.5); WHITE BLOOD COUNT 5.5 10^3/uL (4.3-11.0)
[2017-10-24 04:59] LABS: BUN/CREATININE RATIO 16; CARBON DIOXIDE 23 MMOL/L (21-32); CHLORIDE 109 MMOL/L (98-107); CREATININE SERUM 0.79 MG/DL (0.60-1.30); GFR ESTIMATED > 60; GLUCOSE 102 MG/DL (70-105); MAGNESIUM 1.9 MG/DL (1.8-2.4); PHOSPHORUS 3.1 MG/DL (2.3-4.7); POTASSIUM 3.6 MMOL/L (3.6-5.0); SODIUM 142 MMOL/L (135-145)
[2017-10-24] MEDS: DEXTROSE IV SCH ×4 (05:19→22:10)
[2017-10-24] MEDS: DILTIAZEM IV SCH ×4 (05:19→22:10)
[2017-10-24] MEDS: POTASSIUM CL 10MEQ/50ML IVPB 50 ML IV SCH (05:49)
[2017-10-24] MEDS: MAGNESIUM 1 GM/100 ML IVPB 100 ML IV SCH (05:49)
[2017-10-24] MEDS: KCL 20 MEQ TAB (K-DUR) PO SCH (05:50)
[2017-10-24] MEDS: FUROSEMIDE 20 MG (LASIX) TAB PO SCH (09:48)
[2017-10-24] MEDS: SOTALOL 80 MG (BETAPACE) TAB PO SCH ×2 (09:48→20:26)
[2017-10-24] MEDS: amLODIPine 5 MG (NORVASC) TAB PO SCH (09:48)
[2017-10-24] MEDS: lisINopril 20 MG (ZESTRIL) TAB PO SCH (09:48)
--- NOTE | 2017-10-24 10:04 | Cardiology Progress Note ---
Cardiology SOAP Progress Note Subjective: still in AF Objective: I&O/Vital Signs Vital Sign - Last 12Hours 10/23/17 10/24/17 10/24/17 10/24/17 23:00 00:00 00:00 01:00 Pulse 98 78 86 Resp 32 34 30 B/P (MAP) 96/69 (78) 106/80 (89) 93/64 (74) Pulse Ox 97 97 97 O2 Delivery Nasal Cannula Nasal Cannula Nasal Cannula Nasal Cannula O2 Flow Rate 3.00 3.00 3.00 3.00 10/24/17 10/24/17 10/24/17 10/24/17 01:00 02:00 03:00 04:00 Pulse 79 91 101 101 Resp 26 26 28 B/P (MAP) 95/64 (74) 106/71 (83) 88/76 (80) Pulse Ox 94 96 94 O2 Delivery Nasal Cannula Nasal Cannula Nasal Cannula O2 Flow Rate 3.00 3.00 3.00 10/24/17 10/24/17 10/24/17 10/24/17 04:00 05:00 05:19 06:00 Temp 97.7 Pulse 95 101 88 Resp 26 26 30 B/P (MAP) 100/85 (90) 106/71 116/82 (93) Pulse Ox 97 96 96 O2 Delivery Nasal Cannula Nasal Cannula Nasal Cannula Nasal Cannula O2 Flow Rate 3.00 3.00 3.00 3.00 10/24/17 10/24/17 07:00 08:30 Temp 97.8 Pulse 97 Intake and Output 10/24/17 00:00 Intake Total 275 ml Balance 275 ml Weight (Pounds): 163 Weight (Ounces): 0.0 Weight (Calculated Kilograms): 73.766004 Constitutional: No appears stated age, No AAO x 3, No apparent distress, No PERRL, No well-developed, No well-nourished, No other Respiratory: No accessory muscle use, No respiratory distress, No chest tender , No chest expansion is symmetric, No chest is bilaterally symmetric, No lungs clear to percussion, No lungs clear to auscultation, No crackles, No rhonchi, No rales, No stridor, No wheezing, No pleural rub, No other Cardiovascular: irregularly irregular, tachycardia, S1 and S2 Gastrointestional: No tender, No soft, No round, No distended, No pulsatile mass, No organomegaly, No guarding, No rebound, No tenderness, No hernia, No mass, No audible bowel sounds, No abnormal bowel sounds, No abdominal bruits, No spleenomegaly, No other Extremities: No normal range of motion, No non-tender, No normal inspection, No pedal edema, No calf tenderness, No normal capillary refill, No pelvis stable , No calf tenderness, No inflammation, No pedal edema, No slow capillary refill , No swelling, No other, No abrasion, No clubbing, No cyanosis, No ecchymosis, No laceration, No no lower extremity edema bilateral, No significant edema, No tenderness, No wound Neurologic/Psychiatric: No tank furnace operator II-XII nml as tested, No no motor/sensory deficits, No alert, No normal mood/affect, No oriented x 3, No abnormal cerebellar tests, No abnormal tank furnace operator II-XII, No abnormal gait, No aphasia, No EOM palsy, No facial droop, No motor weakness, No sensory deficit, No depressed affect, No disoriented x 3, No other, No grossly intact, No power is 5/5 both on sides Skin: No normal color, No warm/dry, No cyanosis, No cool, No diaphoresis, No damp, No ecchymosis, No jaundice, No mottled, No pallor, No rash, No tattoos/ piercings, No ulcerations, No rash on exposed areas, No ulcerations on exposed areas, No other Results/Procedures: Labs Laboratory Tests 10/24/17 04:25: White Blood Count 5.5, Red Blood Count 4.22L, Hemoglobin 11.5, Hematocrit 36, Mean Corpuscular Volume 84, Mean Corpuscular Hemoglobin 27, Mean Corpuscular Hemoglobin Concent 32, Red Cell Distribution Width 14.7H, Platelet Count 177, Mean Platelet Volume 12.5H, Neutrophils (%) (Auto) 56, Lymphocytes (%) (Auto) 21 , Monocytes (%) (Auto) 16H, Eosinophils (%) (Auto) 7, Basophils (%) (Auto) 1, Neutrophils # (Auto) 3.1, Lymphocytes # (Auto) 1.1, Monocytes # (Auto) 0.9, Eosinophils # (Auto) 0.4H, Basophils # (Auto) 0.0, Sodium Level 142, Potassium Level 3.6, Chloride Level 109H, Carbon Dioxide Level 23, Anion Gap 10, Blood Urea Nitrogen 13, Creatinine 0.79, Estimat Glomerular Filtration Rate > 60, BUN/ Creatinine Ratio 16, Glucose Level 102, Calcium Level 9.0, Phosphorus Level 3.1 , Magnesium Level 1.9 Microbiology 10/22/17 MRSA Screen - Final, Complete MRSA not isolated A/P: Assessment/Dx: Atrial fibrillation with rapid ventricular rate, Hypertension, h/o Sinus bradycardia Plan: 3 attempts of electrical cardioversion which did not convert the patient to sinus rhythm. Implantable loop recorder done since we need rhythm control and long-term surveillance of atrial fibrillation. She'll be admitted for IV Cardizem and sotalol loading. Sotalol 80mg two doses given. plan to do cardioversion this afternoon. Continue sotalol load till tomorrow am. if she fails cardioversion again, she will be discharged home and follow up cardioversion next week on one week of sotalol 80mg bid. Hypertension will be treated with amlodipine. Lower extremity edema: Continue Lasix. Thank you for your consultation. Please call me if you have any questions. Taj Hernandez MD, FACP, FACC, FSCAI, FHRS, CCDS Interventional Cardiology Cardiac Electrophysiology Vascular Medicine and Endovascular Interventions Dylan HERNANDEZ MD Oct 24, 2017 10:04 am
[2017-10-24] MEDS ORDERED: DILTIAZEM 120 MG (CARDIZEM CD) CAP PO ONE (11:47)
[2017-10-24] MEDS ORDERED: proPOfol 200 MG/20 ML (DIPRIVAN) VIAL IV ONE (12:14)
--- NOTE | 2017-10-24 12:33 | Progress Note-Standard ---
Standard Progress Note Progress Notes/Assess & Plan Time Seen by Provider: 12:05 Final Diagnosis Consulted for sedation during cardioversion. Chart reviewed, verbal consent from pt after questions answered. Propofol 40 mg IV sapna procedure well. Report to MIX CRUSHER OPERATOR care assumed. CHARIS BREEN CRNA Oct 24, 2017 12:33
--- NOTE | 2017-10-24 13:17 | Cardioversion ---
Cardioversion PROCEDURE PHYSICIAN: Taj Hernandez MD DATE OF PROCEDURE: 10/24/17 DIRECT EXTERNAL ELECTRICAL CARDIOVERSION: Indications: Atrial Fibrillation with rapid ventricular rate Preoperative diagnoses: Atrial Fibrillation with rapid ventricular rate Postoperative diagnosis: Sinus rhythm, Successful Electrical Cardioversion History: This is a 77-year-old lady with history of atrial fibrillation with rapid ventricular rate. Cardioversion was attempted yesterday however after 3 attempts she was still in atrial fibrillation. Implantable loop recorder was done. She was admitted for sotalol loading and Cardizem infusion. Repeat cardioversion is planned. Anesthesia: By Anesthesia services Complications: None Specimen: None Contrast: 0 Flouroscopy: none Procedure Details: The patient was brought the laborer cement gun placing after informed consent was taken, all the risks and complications were explained including the risk of stroke. Electrical cardioversion was carried out with anesthesia support with propofol. 200 joules of synchronized shock was delivered through external patches which promptly restored sinus rhythm on second attempt. The patient tolerated the procedure well. Conclusions: 1.Successful Cardioversion. 2. Continue Cardizem, oral anticoagulation. 8. Hopefully discharge tomorrow. Taj Hernandez MD, RS, CCDS Cardiac Electrophysiology Dylan HERNANDEZ MD Oct 24, 2017 1:17 pm
[2017-10-24] MEDS: RIVAROXABAN 20 MG TABLET (XARELTO) PO SCH (18:36)
[2017-10-24] MEDS: NS IV 1000 ML 1,000 ML IV SCH (20:50)
[2017-10-25] VITALS (24 sets, daily range): BP systolic 85–127; BP diastolic 57–93
[2017-10-25 05:04] LABS: BASOPHILS % (AUTO) 1 % (0-10); EOSINOPHILS # (AUTO) 0.5 10^3/uL (0.0-0.3); EOSINOPHILS % (AUTO) 8 % (0-10); HEMATOCRIT 38 % (35-52); LYMPHOCYTES % (AUTO) 17 % (12-44); MEAN CORPUSCULAR HEMOGLOBIN 27 PG (25-34); MEAN CORPUSCULAR HGB CONC 32 G/DL (32-36); MEAN CORPUSCULAR VOLUME 85 FL (80-99); MEAN PLATELET VOLUME 12.5 FL (7.4-10.4); MONOCYTES # (AUTO) 0.8 X 10^3 (0.0-1.0); MONOCYTES % (AUTO) 13 % (0-12); NEUTROPHILS # (AUTO) 3.6 X 10^3 (1.8-7.8); NEUTROPHILS % (AUTO) 62 % (42-75); PLATELET COUNT 197 10^3/uL (130-400); RED BLOOD COUNT 4.46 10^6/uL (4.35-5.85); RED CELL DISTRIBUTION WIDTH 14.9 % (10.0-14.5); WHITE BLOOD COUNT 5.9 10^3/uL (4.3-11.0)
[2017-10-25 05:24] LABS: BUN/CREATININE RATIO 16; CALCIUM 8.8 MG/DL (8.5-10.1); CARBON DIOXIDE 24 MMOL/L (21-32); CHLORIDE 111 MMOL/L (98-107); CREATININE SERUM 0.77 MG/DL (0.60-1.30); GFR ESTIMATED > 60; GLUCOSE 102 MG/DL (70-105); MAGNESIUM 1.8 MG/DL (1.8-2.4); PHOSPHORUS 3.1 MG/DL (2.3-4.7); POTASSIUM 3.5 MMOL/L (3.6-5.0); SODIUM 144 MMOL/L (135-145)
[2017-10-25] MEDS: POTASSIUM CL 10MEQ/50ML IVPB 50 ML IV SCH (07:57)
[2017-10-25] MEDS: MAGNESIUM 1 GM/100 ML IVPB 100 ML IV SCH (07:58)
[2017-10-25] MEDS: KCL 20 MEQ TAB (K-DUR) PO SCH (07:58)
[2017-10-25] MEDS: SOTALOL 80 MG (BETAPACE) TAB PO SCH ×3 (08:30→21:12)
[2017-10-25] MEDS ORDERED: KCL 20 MEQ TAB (K-DUR) PO NR (09:00)
[2017-10-25] MEDS ORDERED: DILTIAZEM 120 MG (CARDIZEM CD) CAP PO SCH ×2 (09:30→11:30)
--- NOTE | 2017-10-25 09:53 | Diagnostic Imaging Report ---
INDICATION: Decreased oxygen saturation. Time of exam: 9:28 AM No prior studies are available for comparison. The heart is enlarged. There appears to be central congestive changes. There is some infiltrate or atelectasis in the left base obscuring the left hemidiaphragm. There may be small bilateral effusions as well. No pneumothorax is seen. IMPRESSION: Cardiomegaly and congestive changes with bibasilar infiltrates and small bilateral effusions. Dictated by: Dictated on workstation # [id number]
--- NOTE | 2017-10-25 10:23 | Cardiology Progress Note ---
Cardiology SOAP Progress Note Subjective: no cardiac complaints. Still in sinus rhythm. Objective: I&O/Vital Signs Vital Sign - Last 12Hours 10/24/17 10/24/17 10/25/17 10/25/17 23:00 23:09 00:00 00:00 Pulse 56 56 Resp 30 30 B/P (MAP) 110/71 (84) 107/70 (82) Pulse Ox 97 93 O2 Delivery Nasal Cannula Nasal Cannula Nasal Cannula Nasal Cannula O2 Flow Rate 3.00 3.00 3.00 3.00 10/25/17 10/25/17 10/25/17 10/25/17 01:00 01:00 02:00 03:00 Pulse 56 56 56 55 Resp 18 30 27 B/P (MAP) 110/71 (84) 114/68 (83) 104/70 (81) Pulse Ox 95 96 96 O2 Delivery Nasal Cannula Nasal Cannula Nasal Cannula O2 Flow Rate 3.00 3.00 3.00 10/25/17 10/25/17 10/25/17 10/25/17 04:00 04:00 05:00 06:00 Pulse 55 58 56 Resp 11 25 B/P (MAP) 111/72 (85) 114/70 (85) 115/68 (84) Pulse Ox 95 95 96 O2 Delivery Nasal Cannula Nasal Cannula Nasal Cannula Nasal Cannula O2 Flow Rate 3.00 3.00 3.00 3.00 10/25/17 07:00 Pulse 54 Intake and Output 10/25/17 00:00 Intake Total 930 ml Output Total 1350 ml Balance -420 ml Weight (Pounds): 163 Weight (Ounces): 0.0 Weight (Calculated Kilograms): 73.599408 Constitutional: No appears stated age, No AAO x 3, No apparent distress, No PERRL, No well-developed, No well-nourished, No other Respiratory: No accessory muscle use, No respiratory distress, No chest tender , No chest expansion is symmetric, No chest is bilaterally symmetric, No lungs clear to percussion, No lungs clear to auscultation, No crackles, No rhonchi, No rales, No stridor, No wheezing, No pleural rub, No other Cardiovascular: regular rate-rhythm, No irregularly irregular, No extra beats, No parasternal heave is noted, No JVD, No edema, bradycardia, No tachycardia, No point of maximal impulse, No cardiac thrills are palpable, S1 and S2, No gallop/S3, No gallop/S4, No diastolic murmur, No systolic murmur, No friction rub, No click, No other Gastrointestional: No tender, No soft, No round, No distended, No pulsatile mass, No organomegaly, No guarding, No rebound, No tenderness, No hernia, No mass, No audible bowel sounds, No abnormal bowel sounds, No abdominal bruits, No spleenomegaly, No other Extremities: No normal range of motion, No non-tender, No normal inspection, No pedal edema, No calf tenderness, No normal capillary refill, No pelvis stable , No calf tenderness, No inflammation, No pedal edema, No slow capillary refill , No swelling, No other, No abrasion, No clubbing, No cyanosis, No ecchymosis, No laceration, No no lower extremity edema bilateral, No significant edema, No tenderness, No wound Neurologic/Psychiatric: No pointing machine operator II-XII nml as tested, No no motor/sensory deficits, No alert, No normal mood/affect, No oriented x 3, No abnormal cerebellar tests, No abnormal pointing machine operator II-XII, No abnormal gait, No aphasia, No EOM palsy, No facial droop, No motor weakness, No sensory deficit, No depressed affect, No disoriented x 3, No other, No grossly intact, No power is 5/5 both on sides Skin: No normal color, No warm/dry, No cyanosis, No cool, No diaphoresis, No damp, No ecchymosis, No jaundice, No mottled, No pallor, No rash, No tattoos/ piercings, No ulcerations, No rash on exposed areas, No ulcerations on exposed areas, No other Results/Procedures: Labs Laboratory Tests 10/25/17 04:45: White Blood Count 5.9, Red Blood Count 4.46, Hemoglobin 12.0, Hematocrit 38, Mean Corpuscular Volume 85, Mean Corpuscular Hemoglobin 27, Mean Corpuscular Hemoglobin Concent 32, Red Cell Distribution Width 14.9H, Platelet Count 197, Mean Platelet Volume 12.5H, Neutrophils (%) (Auto) 62, Lymphocytes (%) (Auto) 17 , Monocytes (%) (Auto) 13H, Eosinophils (%) (Auto) 8, Basophils (%) (Auto) 1, Neutrophils # (Auto) 3.6, Lymphocytes # (Auto) 1.0, Monocytes # (Auto) 0.8, Eosinophils # (Auto) 0.5H, Basophils # (Auto) 0.0, Sodium Level 144, Potassium Level 3.5L, Chloride Level 111H, Carbon Dioxide Level 24, Anion Gap 9, Blood Urea Nitrogen 12, Creatinine 0.77, Estimat Glomerular Filtration Rate > 60, BUN/ Creatinine Ratio 16, Glucose Level 102, Calcium Level 8.8, Phosphorus Level 3.1 , Magnesium Level 1.8 Microbiology 10/22/17 MRSA Screen - Final, Complete MRSA not isolated A/P: Assessment/Dx: Atrial fibrillation with rapid ventricular rate - converted to sinus rhythm. Hypertension, h/o Sinus bradycardia Plan: 3 attempts of electrical cardioversion which did not convert the patient to sinus rhythm. Implantable loop recorder done since we need rhythm control and long-term surveillance of atrial fibrillation. She'll be admitted for IV Cardizem and sotalol loading. Sotalol 80mg two doses given. Successful cardioversion with a second 200 J shock. Converted to sinus bradycardia. QTC borderline prolonged. We might have to give sotalol 80 mg in the morning and 40 mg at night. If her QTC goes over 500 ms on the morning dose we may have to keep her another day. Hypertension will be treated with amlodipine. Lower extremity edema: Continue Lasix. Thank you for your consultation. Please call me if you have any questions. Taj Hernandez MD, FACP, FACC, FSCAI, FHRS, CCDS Interventional Cardiology Cardiac Electrophysiology Vascular Medicine and Endovascular Interventions Dylan HERNANDEZ MD Oct 25, 2017 10:23
[2017-10-25 11:31] LABS: ABG BASE EXCESS -0.4 MMOL/L (-2.5-2.5); ABG OXYGEN SATURATION 93 % (94-100); ABG PCO2 35 MMHG (35-45); ABG PH 7.44 (7.37-7.43); ABG PO2 58 MMHG (79-93); ABG TCO2 24.5 MMOL/L (21.0-31.0)
[2017-10-25 11:33] LABS: ALLENS TEST POSITIVE; PATIENT TEMP 97.4; VENTILATOR NO
[2017-10-25] MEDS: lisINopril 20 MG (ZESTRIL) TAB PO SCH (11:38)
[2017-10-25] MEDS: amLODIPine 5 MG (NORVASC) TAB PO SCH (11:38)
[2017-10-25] MEDS: FUROSEMIDE 20 MG (LASIX) TAB PO SCH (11:39)
--- NOTE | 2017-10-25 12:18 | Diagnostic Imaging Report ---
PROCEDURE: CT chest without contrast. TECHNIQUE: Multiple contiguous axial images were obtained through the chest without the use of intravenous contrast. High-resolution protocol was utilized. INDICATION: Decreased oxygen saturation. Comparison is made with chest radiograph earlier the same day. The heart appears enlarged. No pericardial fluid is seen. There are moderate-sized bilateral pleural effusions. No definite axillary lymphadenopathy is seen. Mediastinal and hilar evaluation is limited without intravenous contrast. The central airways are patent. There is abnormal parenchymal density right middle lobe and lingula. There is also parenchymal consolidation bilateral lower lobes suggestive of pneumonia. Upper abdomen is unremarkable. Thoracolumbar scoliotic curvature is noted. IMPRESSION: Cardiomegaly with bilateral pulmonary infiltrates of moderate sized bilateral pleural effusions. Dictated by: Dictated on workstation # [id number]
[2017-10-25] MEDS ORDERED: FUROSEMIDE 20 MG (LASIX) TAB PO NR (15:00)
[2017-10-25] MEDS: RIVAROXABAN 20 MG TABLET (XARELTO) PO SCH (17:00)
[2017-10-26] VITALS (10 sets, daily range): BP systolic 97–116; BP diastolic 2–93
[2017-10-26 03:45] LABS: BASOPHILS # (AUTO) 0.1 10^3/uL (0.0-0.1); BASOPHILS % (AUTO) 1 % (0-10); EOSINOPHILS # (AUTO) 0.5 10^3/uL (0.0-0.3); EOSINOPHILS % (AUTO) 8 % (0-10); HEMATOCRIT 38 % (35-52); HEMOGLOBIN 12.3 G/DL (11.5-16.0); LYMPHOCYTES # (AUTO) 1.2 X 10^3 (1.0-4.0); LYMPHOCYTES % (AUTO) 20 % (12-44); MEAN CORPUSCULAR HEMOGLOBIN 27 PG (25-34); MEAN CORPUSCULAR HGB CONC 32 G/DL (32-36); MEAN CORPUSCULAR VOLUME 84 FL (80-99); MEAN PLATELET VOLUME 12.5 FL (7.4-10.4); MONOCYTES # (AUTO) 0.9 X 10^3 (0.0-1.0); MONOCYTES % (AUTO) 15 % (0-12); NEUTROPHILS # (AUTO) 3.4 X 10^3 (1.8-7.8); NEUTROPHILS % (AUTO) 56 % (42-75); PLATELET COUNT 207 10^3/uL (130-400); RED BLOOD COUNT 4.55 10^6/uL (4.35-5.85); RED CELL DISTRIBUTION WIDTH 14.9 % (10.0-14.5)
[2017-10-26 04:05] LABS: BUN/CREATININE RATIO 13; CALCIUM 8.8 MG/DL (8.5-10.1); CARBON DIOXIDE 26 MMOL/L (21-32); CHLORIDE 106 MMOL/L (98-107); CREATININE SERUM 0.77 MG/DL (0.60-1.30); GFR ESTIMATED > 60; GLUCOSE 102 MG/DL (70-105); MAGNESIUM 1.6 MG/DL (1.8-2.4); PHOSPHORUS 2.9 MG/DL (2.3-4.7); POTASSIUM 3.4 MMOL/L (3.6-5.0); SODIUM 142 MMOL/L (135-145)
[2017-10-26] MEDS: MAGNESIUM 1 GM/100 ML IVPB 100 ML IV SCH ×3 (05:04→06:29)
[2017-10-26] MEDS: POTASSIUM CL 10MEQ/50ML IVPB 50 ML IV SCH ×3 (05:04→06:30)
[2017-10-26] MEDS: KCL 20 MEQ TAB (K-DUR) PO SCH (06:30)
[2017-10-26] MEDS: SOTALOL 80 MG (BETAPACE) TAB PO SCH (08:45)
[2017-10-26] MEDS: amLODIPine 5 MG (NORVASC) TAB PO SCH (08:45)
[2017-10-26] MEDS: FUROSEMIDE 20 MG (LASIX) TAB PO SCH (08:45)
[2017-10-26] MEDS: lisINopril 20 MG (ZESTRIL) TAB PO SCH (08:45)
[2017-10-26] MEDS ORDERED: DILTIAZEM 240 MG (CARDIZEM CD) CAP PO SCH (09:00)
--- NOTE | 2017-10-26 10:34 | Diagnostic Imaging Report ---
INDICATION: Hypoxia. COMPARISON: 10/25/2017 FINDINGS: A single view of the chest demonstrates cardiac enlargement with unchanged central vascular congestion. Small effusions persist in both bases. There is basilar atelectasis. No pneumothorax is seen. Osseous structures are age-appropriate. IMPRESSION: Unchanged aeration of the lungs. Dictated by: Dictated on workstation # [id number]
[2017-10-26] MEDS ORDERED: DILT240C63 PO (11:15)
[2017-10-26] MEDS ORDERED: Sotalol Hcl PO (11:15)
--- NOTE | 2017-10-26 11:18 | Discharge Inst-Cardiology ---
Discharge Inst-Cardiac Patient Instructions Patient Instructions: discontinue metoprolol. Start sotalol 80 mg twice a day. Start Cardizem 240 mg once a day. Follow-up with Dr. Hernandez on Saturday10/30/2017. We will schedule transesophageal echocardiogram and cardioversion next 10/31/2017 Goal: improved control of atrial fibrillation. Rhythm control. [facility] For: symptomatic atrial fibrillation with rapid ventricular rate. Activity & Diet Discharge Diet: Cardiac Diet Activity as Tolerated: Yes Orders-Post D/C & Referrals follow-up with Dr. Lawler as well. Dylan HERNANDEZ MD Oct 26, 2017 11:18 am
--- NOTE | 2017-10-26 11:23 | Cardiology Discharge Summary ---
Diagnosis/Chief Complaint Date of Admission Oct 22, 2017 at 11:36 am Date of Discharge 10/26/2017 Admission Diagnosis atrial fibrillation with rapid ventricular rate Final/Discharge Diagnosis atrial fibrillation with controlled ventricular rate, Moderate to severe mitral regurgitation Chief Complaint/HPI Chief Complaint/HPI This is a 77-year-old lady who is a patient of Dr. Lawler. She has previous history of cervical spine surgery. She also has history of atrial fibrillation which started in 2001. She has history of hypertension. She has rare episodes of shortness of breath. No chest pain. She usually has atrial fibrillation episodes are around once a month and takes an extra dose of metoprolol which helps. She has been complaining of shortness of breath and fatigue in the last few days. She is also increased weight for which she saw Dr. Lawler and was started on Lasix. She denies any significant palpitations. she presented with atrial fibrillation with rapid ventricular rate. Cardioversion was performed as an outpatient on 10/22/2017 with loop recorder implantation. Cardioversion was unsuccessful therefore she was admitted for further management. Discharge Summary Procedures successful electrical cardioversion on 10/24/2017 which converted the patient to sinus rhythm. Discharge Physical Examination irregularly irregular rhythm. Normal respiratory exam Hospital Course successful electrical cardioversion on 10/24/2017. Patient was loaded with sotalol 80 mg twice a day. Stable QTc interval. preliminary Echocardiogram shows moderate to severe mitral regurgitation. Official report is pending. Pending Labs Laboratory Tests 10/26/17 03:35: White Blood Count 6.0, Red Blood Count 4.55, Hemoglobin 12.3, Hematocrit 38, Mean Corpuscular Volume 84, Mean Corpuscular Hemoglobin 27, Mean Corpuscular Hemoglobin Concent 32, Red Cell Distribution Width 14.9, Platelet Count 207, Mean Platelet Volume 12.5, Neutrophils (%) (Auto) 56, Lymphocytes (%) (Auto) 20 , Monocytes (%) (Auto) 15, Eosinophils (%) (Auto) 8, Basophils (%) (Auto) 1, Neutrophils # (Auto) 3.4, Lymphocytes # (Auto) 1.2, Monocytes # (Auto) 0.9, Eosinophils # (Auto) 0.5, Basophils # (Auto) 0.1, Sodium Level 142, Potassium Level 3.4, Chloride Level 106, Carbon Dioxide Level 26, Anion Gap 10, Blood Urea Nitrogen 10, Creatinine 0.77, Estimat Glomerular Filtration Rate > 60, BUN/ Creatinine Ratio 13, Glucose Level 102, Calcium Level 8.8, Phosphorus Level 2.9 , Magnesium Level 1.6, B-Type Natriuretic Peptide 718.2 Discussion & Recommendations Discussion all discharge instructions were discussed at length with the patient. Discharge instructions also discussed with the RN. Discharge took over 30 minutes to complete. Follow up appt.: Dr. Hernandez on Saturday10/30/2017. Dr. Lawler in one to 2 weeks. Dicharge Diet: Cardiac Diet Activity as Tolerated: Yes Home Medications Reviewed patient Home Medication Reconciliation Form Discharge Home Medications: Reviewed and agree with Discharge Medication list on patient's Discharge Instruction sheet Condition at discharge stable Instructions to patient/family continue sotalol 80 mg twice a day. Continue Xarelto every day. Start Cardizem 240 mg daily. Diagnosis/Problems Diagnosis/Problems (1) Mitral regurgitation (2) Atrial fibrillation with rapid ventricular response Status: Chronic Dylan HERNANDEZ MD Oct 26, 2017 11:23 am
[2017-10-26] MEDS: DILTIAZEM IV SCH ×2 (12:48)
[2017-10-26] MEDS: DEXTROSE IV SCH ×2 (12:48)
--- OUTSIDE RECORDS SUMMARY | 2017-10-28 11:43 | XMS REPORT | Continuity of Care Document ---
Author Author [facility] Organization [facility] Address Unknown Phone Unavailable Allergies Active Description Code Type Severity Reaction Onset Reported/Identified Relationship to Patient Clinical Status Yes No Known Drug Allergies [id number] Drug Allergy Unknown N/A 08/03/2011 Medications There [...] Garcia Ot V82.81 02/14/2015 ARTI KELSEY, KAMILAH Garcai Ot V76.12 02/14/2015 ARTI KELSEY, KAMILAH Garcia [...] Ot V43.65 KNEE JOINT REPLACEMENT STATUS 06/29/2015 SHASHANK DO, SAVANNAH F Ot V54.81 AFTERCARE FOLLOWING [...] MD Ot R06.02 SHORTNESS OF BREATH 03/15/2017 Dlyan NGO MD Ot I10 ESSENTIAL (PRIMARY) HYPERTENSION [...] CERVICALGIA Procedures There is no data. Results Test Result Range Methicillin resistant Staphylococcus aureus (MRSA) screening culture - 08:50 Methicillin resistant Staphylococcus aureus (MRSA) screening culture NEG [facility] Automated blood complete blood count (hemogram) panel - 10/22/17 13:45 Blood leukocytes automated count (number/volume) 7.7 10*3/uL 4.3-11.0 Blood erythrocytes automated count (number/volume) 4.51 10*6/uL 4.35-5.85 Venous blood hemoglobin measurement (mass/volume) 12.2 g/dL 11.5-16.0 Blood hematocrit (volume fraction) 38 % 35-52 Automated erythrocyte mean corpuscular volume 84 [foz_us] 80-99 Automated erythrocyte mean corpuscular hemoglobin (mass per erythrocyte) 27 pg 25-34 Automated erythrocyte mean corpuscular hemoglobin concentration measurement ( mass/volume) 32 g/dL 32-36 Automated erythrocyte distribution width ratio 14.8 % 10.0-14.5 Automated blood platelet count (count/volume) 195 10*3/uL 130-400 Automated blood platelet mean volume measurement 12.2 [foz_us] 7.4-10.4 Whole blood basic metabolic panel - 10/22/17 13:45 Serum or plasma sodium measurement (moles/volume) 141 mmol/L 135-145 Serum or plasma potassium measurement (moles/volume) 3.6 mmol/L 3.6-5.0 Serum or plasma chloride measurement (moles/volume) 107 mmol/L 98-107 Carbon dioxide 23 mmol/L 21-32 Serum or plasma anion gap determination (moles/volume) 11 mmol/L 5-14 Serum or plasma urea nitrogen measurement (mass/volume) 15 mg/dL 7-18 Serum or plasma creatinine measurement (mass/volume) 0.81 mg/dL 0.60-1.30 Serum or plasma urea nitrogen/creatinine mass ratio 19 NRG Serum or plasma creatinine measurement with calculation of estimated glomerular filtration rate > NRG Serum or plasma glucose measurement (mass/volume) 103 mg/dL 70-105 Serum or plasma calcium measurement (mass/volume) 8.9 mg/dL 8.5-10.1 Complete blood count (CBC) with automated white blood cell (WBC) differential - 10/24/17 04:25 Blood leukocytes automated count (number/volume) 5.5 10*3/uL 4.3-11.0 Blood erythrocytes automated count (number/volume) 4.22 10*6/uL 4.35-5.85 Venous blood hemoglobin measurement (mass/volume) 11.5 g/dL 11.5-16.0 Blood hematocrit (volume fraction) 36 % 35-52 Automated erythrocyte mean corpuscular volume 84 [foz_us] 80-99 Automated erythrocyte mean corpuscular hemoglobin (mass per erythrocyte) 27 pg 25-34 Automated erythrocyte mean corpuscular hemoglobin concentration measurement ( mass/volume) 32 g/dL 32-36 Automated erythrocyte distribution width ratio 14.7 % 10.0-14.5 Automated blood platelet count (count/volume) 177 10*3/uL 130-400 Automated blood platelet mean volume measurement 12.5 [foz_us] 7.4-10.4 Automated blood neutrophils/100 leukocytes 56 % 42-75 Automated blood lymphocytes/100 leukocytes 21 % 12-44 Blood monocytes/100 leukocytes 16 % 0-12 Automated blood eosinophils/100 leukocytes 7 % 0-10 Automated blood basophils/100 leukocytes 1 % 0-10 Blood neutrophils automated count (number/volume) 3.1 10*3 1.8-7.8 Blood lymphocytes automated count (number/volume) 1.1 10*3 1.0-4.0 Blood monocytes automated count (number/volume) 0.9 10*3 0.0-1.0 Automated eosinophil count 0.4 10*3/uL 0.0-0.3 Automated blood basophil count (count/volume) 0.0 10*3/uL 0.0-0.1 Whole blood basic metabolic panel - 10/24/17 04:25 Serum or plasma sodium measurement (moles/volume) 142 mmol/L 135-145 Serum or plasma potassium measurement (moles/volume) 3.6 mmol/L 3.6-5.0 Serum or plasma chloride measurement (moles/volume) 109 mmol/L 98-107 Carbon dioxide 23 mmol/L 21-32 Serum or plasma anion gap determination (moles/volume) 10 mmol/L 5-14 Serum or plasma urea nitrogen measurement (mass/volume) 13 mg/dL 7-18 Serum or plasma creatinine measurement (mass/volume) 0.79 mg/dL 0.60-1.30 Serum or plasma urea nitrogen/creatinine mass ratio 16 NRG Serum or plasma creatinine measurement with calculation of estimated glomerular filtration rate > NRG Serum or plasma glucose measurement (mass/volume) 102 mg/dL 70-105 Serum or plasma calcium measurement (mass/volume) 9.0 mg/dL 8.5-10.1 Serum or plasma phosphate measurement (mass/volume) - 10/24/17 04:25 Serum or plasma phosphate measurement (mass/volume) 3.1 mg/dL 2.3-4.7 Magnesium - 10/24/17 04:25 Magnesium 1.9 mg/dL 1.8-2.4 Complete blood count (CBC) with automated white blood cell (WBC) differential - 10/25/17 04:45 Blood leukocytes automated count (number/volume) 5.9 10*3/uL 4.3-11.0 Blood erythrocytes automated count (number/volume) 4.46 10*6/uL 4.35-5.85 Venous blood hemoglobin measurement (mass/volume) 12.0 g/dL 11.5-16.0 Blood hematocrit (volume fraction) 38 % 35-52 Automated erythrocyte mean corpuscular volume 85 [foz_us] 80-99 Automated erythrocyte mean corpuscular hemoglobin (mass per erythrocyte) 27 pg 25-34 Automated erythrocyte mean corpuscular hemoglobin concentration measurement ( mass/volume) 32 g/dL 32-36 Automated erythrocyte distribution width ratio 14.9 % 10.0-14.5 Automated blood platelet count (count/volume) 197 10*3/uL 130-400 Automated blood platelet mean volume measurement 12.5 [foz_us] 7.4-10.4 Automated blood neutrophils/100 leukocytes 62 % 42-75 Automated blood lymphocytes/100 leukocytes 17 % 12-44 Blood monocytes/100 leukocytes 13 % 0-12 Automated blood eosinophils/100 leukocytes 8 % 0-10 Automated blood basophils/100 leukocytes 1 % 0-10 Blood neutrophils automated count (number/volume) 3.6 10*3 1.8-7.8 Blood lymphocytes automated count (number/volume) 1.0 10*3 1.0-4.0 Blood monocytes automated count (number/volume) 0.8 10*3 0.0-1.0 Automated eosinophil count 0.5 10*3/uL 0.0-0.3 Automated blood basophil count (count/volume) 0.0 10*3/uL 0.0-0.1 Whole blood basic metabolic panel - 10/25/17 04:45 Serum or plasma sodium measurement (moles/volume) 144 mmol/L 135-145 Serum or plasma potassium measurement (moles/volume) 3.5 mmol/L 3.6-5.0 Serum or plasma chloride measurement (moles/volume) 111 mmol/L 98-107 Carbon dioxide 24 mmol/L 21-32 Serum or plasma anion gap determination (moles/volume) 9 mmol/L 5-14 Serum or plasma urea nitrogen measurement (mass/volume) 12 mg/dL 7-18 Serum or plasma creatinine measurement (mass/volume) 0.77 mg/dL 0.60-1.30 Serum or plasma urea nitrogen/creatinine mass ratio 16 NRG Serum or plasma creatinine measurement with calculation of estimated glomerular filtration rate > NRG Serum or plasma glucose measurement (mass/volume) 102 mg/dL 70-105 Serum or plasma calcium measurement (mass/volume) 8.8 mg/dL 8.5-10.1 Serum or plasma phosphate measurement (mass/volume) - 10/25/17 04:45 Serum or plasma phosphate measurement (mass/volume) 3.1 mg/dL 2.3-4.7 Magnesium - 10/25/17 04:45 Magnesium 1.8 mg/dL 1.8-2.4 Arterial blood gas measurement - 10/25/17 11:25 Blood pCO2 35 mm[Hg] 35-45 Blood pO2 58 mm[Hg] 79-93 Arterial blood bicarbonate measurement (moles/volume) 23 mmol/L 23-27 Arterial blood base excess by calculation -0.4 mmol/L - 2.5-2.5 Arterial blood oxygen saturation measurement 93 % 94-100 * Inhaled oxygen flow rate N/A NRG Arterial blood pH measurement with patient temperature correction 7.44 7.37-7.43 Arterial blood carbon dioxide, total measurement (moles/volume) 24.5 mmol/L 21.0-31.0 Body site LEFT RADIAL NRG Assessment of wrist artery patency prior to arterial puncture POSITIVE NRG Setting of ventilation mode NO NRG Measurement of body temperature 97.4 NRG Complete blood count (CBC) with automated white blood cell (WBC) differential - 10/26/17 03:35 Blood leukocytes automated count (number/volume) 6.0 10*3/uL 4.3-11.0 Blood erythrocytes automated count (number/volume) 4.55 10*6/uL 4.35-5.85 Venous blood hemoglobin measurement (mass/volume) 12.3 g/dL 11.5-16.0 Blood hematocrit (volume fraction) 38 % 35-52 Automated erythrocyte mean corpuscular volume 84 [foz_us] 80-99 Automated erythrocyte mean corpuscular hemoglobin (mass per erythrocyte) 27 pg 25-34 Automated erythrocyte mean corpuscular hemoglobin concentration measurement ( mass/volume) 32 g/dL 32-36 Automated erythrocyte distribution width ratio 14.9 % 10.0-14.5 Automated blood platelet count (count/volume) 207 10*3/uL 130-400 Automated blood platelet mean volume measurement 12.5 [foz_us] 7.4-10.4 Automated blood neutrophils/100 leukocytes 56 % 42-75 Automated blood lymphocytes/100 leukocytes 20 % 12-44 Blood monocytes/100 leukocytes 15 % 0-12 Automated blood eosinophils/100 leukocytes 8 % 0-10 Automated blood basophils/100 leukocytes 1 % 0-10 Blood neutrophils automated count (number/volume) 3.4 10*3 1.8-7.8 Blood lymphocytes automated count (number/volume) 1.2 10*3 1.0-4.0 Blood monocytes automated count (number/volume) 0.9 10*3 0.0-1.0 Automated eosinophil count 0.5 10*3/uL 0.0-0.3 Automated blood basophil count (count/volume) 0.1 10*3/uL 0.0-0.1 Whole blood basic metabolic panel - 10/26/17 03:35 Serum or plasma sodium measurement (moles/volume) 142 mmol/L 135-145 Serum or plasma potassium measurement (moles/volume) 3.4 mmol/L 3.6-5.0 Serum or plasma chloride measurement (moles/volume) 106 mmol/L 98-107 Carbon dioxide 26 mmol/L 21-32 Serum or plasma anion gap determination (moles/volume) 10 mmol/L 5-14 Serum or plasma urea nitrogen measurement (mass/volume) 10 mg/dL 7-18 Serum or plasma creatinine measurement (mass/volume) 0.77 mg/dL 0.60-1.30 Serum or plasma urea nitrogen/creatinine mass ratio 13 NRG Serum or plasma creatinine measurement with calculation of estimated glomerular filtration rate > NRG Serum or plasma glucose measurement (mass/volume) 102 mg/dL 70-105 Serum or plasma calcium measurement (mass/volume) 8.8 mg/dL 8.5-10.1 Serum or plasma phosphate measurement (mass/volume) - 10/26/17 03:35 Serum or plasma phosphate measurement (mass/volume) 2.9 mg/dL 2.3-4.7 Magnesium - 10/26/17 03:35 Magnesium 1.6 mg/dL 1.8-2.4 Serum or plasma lithium measurement (moles/volume) - 10/26/17 03:35 BNP level 718.2 pg/mL <100.0 Encounters ACCT No. Visit Date/Time Discharge Status Pt. Type Provider Facility Loc./Unit Complaint [id number] 10/18/2017 09:28:00 10/18/2017 23:59:59 CLS Outpatient CARLOS GRADY [facility] REHAB NECK PAIN [id number] 02/28/2017 07:24:00 02/28/2017 23:59:59 CLS Outpatient Dylan NGO MD [facility] CARD I48.91,I10,R06.02 [id number] 02/22/2017 09:29:00 02/22/2017 23:59:59 CLS Outpatient Dylan NGO MD [facility] CARD I48.91,I10,R06.02 [id number] 01/14/2017 11:48:00 01/14/2017 23:59:59 CLS Outpatient MODESTO MATHIAS DO [facility] RAD NODULES [id number] 09/28/2015 09:30:00 09/28/2015 10:10:00 DIS Outpatient SAVANNAH ENCARNACION DO [facility] REHAB DJD S/P L TKR [id number] 06/21/2015 23:15:00 06/29/2015 16:49:00 DIS Inpatient KAMILAH CHI MD [facility] 4TH INTRACTABLE L SCIATICA PAIN;EXCESSIVE BRUISING; [id number] 06/17/2015 12:53:00 06/29/2015 00:01:00 DIS Outpatient SAVANNAH ENCARNACION DO [facility] REHAB DJD S/P L TKR [id number] 06/02/2015 13:15:00 06/02/2015 23:59:59 CLS Outpatient SAVANNAH ENCARNACION DO [facility] HH ANTICOAG THERAPY [id number] 02/14/2015 10:06:00 02/14/2015 23:59:59 CLS Outpatient KAMILAH CHI MD [facility] ACUTE AFIB [id number] 02/10/2015 10:49:00 02/10/2015 23:59:59 CLS Outpatient KAMILAH CHI MD [facility] CARD AFIB [id number] 05/13/2014 09:49:00 05/13/2014 23:59:59 CLS Outpatient KAMILAH CHI MD [facility] RAD SCREENING [id number] 03/04/2014 09:30:00 03/04/2014 23:59:59 CLS Outpatient KAMILAH CHI MD [facility] RAD OSTEOPOROSIS [id number] 05/07/2013 10:18:00 05/07/2013 23:59:59 CLS Outpatient KAMILAH CHI MD [facility] RAD SCREENING [id number] 10/22/2017 11:36:00 ACT Inpatient Dylan NGO MD [facility] ICU AFIB W/RVR [id number] 02/14/2015 10:05:00 Document Registration [id number] 04/28/2012 10:29:00 Document Registration [id number] 08/03/2011 07:46:00 Document Registration [id number] 04/26/2011 10:40:00 Document Registration
== END 2017-10-26 13:20 | disposition home or self-care (01) | DRG 262 ==
LOC: CATH 08:10 → UNDOADMIN 11:36 → ICU 11:36 → UNDODISIN 10-26 13:20
PROVIDERS: ADMIT Internal Medicine Interventional Cardiology; ATTEND Internal Medicine Interventional Cardiology
PROC: 5A2204Z Restoration of Cardiac Rhythm, Single (ICD-10-PCS; principal; 2017-10-22)
PROC: 0JH632Z Insertion of Monitoring Device into Chest Subcutaneous Tissue and Fascia, Percutaneous Approach (ICD-10-PCS; 2017-10-22)
PROC: 5A2204Z Restoration of Cardiac Rhythm, Single (ICD-10-PCS; 2017-10-24)
DX: I48.0 Paroxysmal atrial fibrillation (principal); I10 Essential (primary) hypertension; R00.1 Bradycardia, unspecified; R06.02 Shortness of breath; R60.0 Localized edema; Z79.01 Long term (current) use of anticoagulants
CPT/HCPCS: 33282; 36415; 71045; 71250; 80048; 82805; 83735; 83880; 84100; 85025; 85027; 87081; 92960; 93005; 93306; 94761

== ENCOUNTER → 2017-11-11 | Outpatient (CLI) | payer MEDICARE, OTHER ==
[~2017-11-11] MED LIST changes: +ACET-2650 PO; +AMLO5TAB2 PO; +BENZ200C51 PO; +CEPH-507 PO; +DILT240C53 PO; +DILT240C63 PO; +FURO20TA4 PO; +LISI40TA PO; +MAGN64TA11 PO; +RIVA20TA PO; +SOTA80TA PO; +Sotalol Hcl PO
== END ==
LOC: RT 14:59
PROVIDERS: ATTEND Internal Medicine
DX: R06.02 Shortness of breath (principal); R09.02 Hypoxemia
CPT/HCPCS: 94060; 94729

== ENCOUNTER 2017-11-29 20:45 | Outpatient (CLI) | payer MEDICARE, OTHER | END 2017-11-30 06:39 | disposition home or self-care (01) | LOC: SLEEP 20:45 | PROVIDERS: ATTEND Nurse Practitioner Family | DX: G47.33 Obstructive sleep apnea (adult) (pediatric) (principal); G47.61 Periodic limb movement disorder; I10 Essential (primary) hypertension; I48.91 Unspecified atrial fibrillation | CPT/HCPCS: 95810 ==

== ENCOUNTER → 2018-03-06 | Outpatient (CLI) | payer MEDICARE, OTHER ==
--- NOTE | 2018-03-06 16:48 | Diagnostic Imaging Report ---
PROCEDURE: US Thyroid. TECHNIQUE: Multiple real-time grayscale images were obtained of the thyroid in various projections. INDICATION: Multinodular goiter. FINDINGS: The previous thyroid ultrasound exam performed on 01/14/2017 noted that the thyroid gland was enlarged and that there were dominant bilateral thyroid nodules. The largest nodule was located in the right lobe and measured 1.5 x 1.2 x 1.7 cm. On this exam that nodule is again identified and does not appear to have changed significantly. The stability of this nodule over a greater than one-year period would suggest it is not related to an aggressive process. It may prove worthwhile to have a follow-up exam in one year for continued evaluation, however. The other hypoechoic nodules within both lobes of the thyroid seen previously are again evident and essentially no different. The right lobe remains enlarged measuring 5 1 x 2.1 x 2.1 cm (normal gland size 4-5 x 2 x 2 cm or less). The left lobe measures 4.2 x 1.4 x 1.7 cm. IMPRESSION: The overall appearance of the thyroid gland does not appear to have changed significantly since the prior study. The right lobe remains enlarged and there are multiple nodules in both lobes. The largest nodule in the right lobe is stable in size and appearance and consequently unlikely related to an aggressive neoplastic process. Recommendations as above. Dictated by: Dictated on workstation # [id number]
== END ==
LOC: RAD 13:43
PROVIDERS: ATTEND Otolaryngology Otolaryngology/Facial Plastic Surgery
DX: E04.2 Nontoxic multinodular goiter (principal)
CPT/HCPCS: 76536

== ENCOUNTER → 2019-02-25 | Outpatient (CLI) | payer MEDICARE, OTHER ==
[~2019-02-25] MED LIST changes: -ALEN70TA47 PO; +ALEN70TA5 PO; -AMLO5TAB2 PO; +AMLO5TAB9 PO; -DILT240C63 PO; +DILT240C97 PO; +OCUVITE SOFTGE1 EACH PO; -RIVA20TA PO; +RIVA20TA2 PO; -SOTA80TA PO; +STL80T PO; -VIT1CAPS9 PO
== END ==
LOC: CARD 12:37
PROVIDERS: ATTEND Internal Medicine Interventional Cardiology
DX: I48.0 Paroxysmal atrial fibrillation (principal); I49.5 Sick sinus syndrome; I10 Essential (primary) hypertension; I34.0 Nonrheumatic mitral (valve) insufficiency; R53.83 Other fatigue; Z95.0 Presence of cardiac pacemaker
CPT/HCPCS: 93306

== ENCOUNTER → 2019-03-02 | Outpatient (CLI) | payer MEDICARE, OTHER ==
--- NOTE | 2019-03-02 11:37 | Diagnostic Imaging Report ---
PROCEDURE: US Thyroid. TECHNIQUE: Multiple real-time grayscale images were obtained of the thyroid in various projections. INDICATION: Multinodular goiter. COMPARISON: Correlation is made with prior thyroid ultrasound from 03/06/2018. FINDINGS: Right lobe of the thyroid measures 5.4 x 2.6 x 1.9 cm and the left lobe measures 3.8 x 1.8 x 1.6 cm. Isthmus is 5 mm in thickness. Parenchymal heterogeneity containing multiple nodules is again noted. The largest nodule on the right is in the [id number] pole measuring approximately 1.9 x 1.6 x 1.8 cm compared with 1.5 x 1.3 x 1.6 cm on prior. A right upper pole circumscribed hypoechoic nodule measures 1.4 x 0.8 x 1.3 cm. This was not measured on prior exam. A subcentimeter nodule in the lower pole is seen. Left lobe contains a hypoechoic nodule in the upper pole measuring 1.1 x 0.7 x 0.9 cm. This compares to 0.9 x 0.6 x 0.8 cm. Subcentimeter lower pole nodules noted. IMPRESSION: Multinodular thyroid. A dominant nodule in the lower pole of the right lobe measuring slightly larger when compared with examination one year earlier. Continued followup is recommended. Dictated by: Dictated on workstation # [id number]
== END ==
LOC: RAD 10:18
PROVIDERS: ATTEND Otolaryngology Otolaryngology/Facial Plastic Surgery
DX: E04.2 Nontoxic multinodular goiter (principal)
CPT/HCPCS: 76536

== ENCOUNTER → 2020-03-21 | Outpatient (CLI) | payer MEDICARE, OTHER ==
[~2020-03-21] MED LIST changes: +ACHYD1T PO; +DILT240C92 PO; -DILT240C97 PO; -HYDR-3820 PO; -METO-370 PO; +METO50TA7 PO
--- NOTE | 2020-03-21 12:41 | Diagnostic Imaging Report ---
PROCEDURE: US Thyroid. TECHNIQUE: Multiple Real-time grayscale images were obtained of the thyroid in various projections. INDICATION: Thyroid nodules, followup. COMPARISON: 03/02/2019. FINDINGS: The right lobe of the thyroid measures 5.5 x 2.7 x 3.0 cm and the left lobe measures 4.6 x 1.8 x 1.6 cm. The isthmus is 6 mm in thickness. Multiple bilateral thyroid nodules are again noted. The dominant nodule in the right lobe in the mid to lower aspect is stable at approximately 1.6 x 1.8 x 1.5 cm. The left-sided nodule is again noted. There is a questionable new nodule in the lower pole of the left lobe measuring 1.3 x 1.1 x 1.0 cm. No microcalcifications are seen. No other abnormalities are detected. IMPRESSION: Bilateral thyroid nodules. The majority of these appear to be stable. There is a questionable new nodule versus better visualized nodule in the lower pole of the left lobe, as described. Followup in 6 months is recommended to show continued stability. Dictated by: Dictated on workstation # [id number]
== END ==
LOC: RAD 09:37
PROVIDERS: ATTEND Otolaryngology Otolaryngology/Facial Plastic Surgery
DX: E04.2 Nontoxic multinodular goiter (principal)
CPT/HCPCS: 76536

== ENCOUNTER → 2020-03-21 | Outpatient (CLI) | payer MEDICARE, OTHER | LOC: CARD 09:35 | PROVIDERS: ATTEND Internal Medicine Interventional Cardiology | DX: I34.0 Nonrheumatic mitral (valve) insufficiency (principal); I48.0 Paroxysmal atrial fibrillation; I10 Essential (primary) hypertension; G47.33 Obstructive sleep apnea (adult) (pediatric); I49.5 Sick sinus syndrome; Z95.0 Presence of cardiac pacemaker | CPT/HCPCS: 93306 ==

== ENCOUNTER → 2021-01-16 | Outpatient (CLI) | payer MEDICARE, OTHER ==
[~2021-01-16] MED LIST changes: -ALEN70TA5 PO; +ALEN70TA80 PO; +AMLO-250 PO; -AMLO5TAB9 PO; -LISI-552 PO; +LISI20TA26 PO; -LISI40TA PO; +LISI40TA9 PO; -WARF2.5T82 PO; +WRF2.5T PO
--- NOTE | 2021-01-16 19:36 | Diagnostic Imaging Report ---
INDICATION: MULTINODULAR GOITER TECHNIQUE: Grayscale sonographic images of the thyroid gland. CORRELATION STUDY: Multiple prior studies, the most recent 03/21/2020 FINDINGS: RIGHT LOBE: Enlarged at 5.5 x 3.2 x 2.3 cm. - Superior pole relatively isoechoic solid nodule, 9 x 8 x 9 mm (previously 9 x 7 x 6 mm), N1. - Mid to superior pole mixed solid and cystic mass with vascularity. There may be a few punctate microcalcifications, 19 x 7 x 9 mm (previously 12 x 16 x 7 mm), N2. - Inferior pole hypoechoic to slightly isoechoic solid mass. 1.9 x 1.7 x 1.9 cm (previously 1.6 x 1.8 x 1.5 cm), N3. LEFT LOBE: Enlarged 4.9 x 1.7 x 1.5 cm. - Superior pole slightly hypoechoic solid nodule approximately 9 x 7 x 9 mm (previously 9 x 9 x 6 mm) N1. - Superior pole hypoechoic nodule 8 x 6 x 4 mm (Previously 8 x 7 x 3 mm) N2. Isthmus appears unremarkable. IMPRESSION: Enlarged thyroid gland with multiple nodules. May very well reflect multinodular goiter. The largest lesion at the inferior pole right lobe does not have overly suspicious features but is measuring slightly larger. Repeat ultrasound imaging in approximately 6 months recommended for reassessment. (Normal gland size: 4-5 x 2 x 2 cm) Dictated by: Dictated on workstation # [id number]
== END ==
LOC: RAD 14:13
PROVIDERS: ATTEND Otolaryngology Otolaryngology/Facial Plastic Surgery
DX: E04.2 Nontoxic multinodular goiter (principal)
CPT/HCPCS: 76536

== ENCOUNTER 2021-03-31 13:00 | Outpatient (RCR) | payer MEDICARE | END 2021-04-19 13:45 | disposition home or self-care (01) | PROVIDERS: ATTEND Orthopaedic Surgery | DX: M12.812 Other specific arthropathies, not elsewhere classified, left shoulder (principal); M47.812 Spondylosis without myelopathy or radiculopathy, cervical region; I10 Essential (primary) hypertension ==

== ENCOUNTER → 2022-03-07 | Outpatient (CLI) | payer MEDICARE ==
--- NOTE | 2022-03-07 17:25 | Diagnostic Imaging Report ---
EXAMINATION: US Thyroid. TECHNIQUE: Multiple real-time grayscale images were obtained of the thyroid in various projections. HISTORY: MULTI NODULAR GOITER COMPARISON: 01/16/2021 FINDINGS: The right lobe of the thyroid measures 6.1 x 2.3 x 2.9 cm. There is a 2.1 cm solid, hypoechoic, wider than tall nodule smooth margins. Additional similar 1.2 cm nodule. There is a 1.9 cm mixed solid and cystic nodule. These have slightly increased in size from prior exam. The left lobe of the thyroid measures 5.0 x 1.7 x 1.7 cm. There are stable subcentimeter hypoechoic solid nodules with smooth margins which are unchanged from prior exam. The isthmus is normal and measures 0.7 cm. No suspicious adenopathy within the visualized neck. IMPRESSION: 1. Slightly increased size of the right lobe nodules measuring up to 2.1 cm. TI-RADS 4. The largest 2 x 1 cm lesion does meet criteria for fine-needle aspiration if this has not already been performed. 2. Additional bilateral thyroid nodules, TI-RADS 4. These meet criteria for followup. TI-RADS 1: Benign No FNA or follow-up required TI-RADS 2: Not Suspicious No FNA or follow-up required TI-RADS 3: Mildly Suspicious FNA if ? 2.5 cm Follow if ? 1.5 cm (At 1, 3 and 5 years from initial scan) TI-RADS 4: Moderately Suspicious FNA if ? 1.5 cm Follow if ? 1 cm (At 1, 2, 3 and 5 years from initial scan) TI-RADS 5: Highly Suspicious FNA if ? 1 cm Follow if ? 0.5 cm (Annually for 5 years from initial scan) Dictated by: Dictated on workstation # [id number]
== END ==
LOC: RAD 12:00
PROVIDERS: ATTEND Otolaryngology Otolaryngology/Facial Plastic Surgery
DX: E04.2 Nontoxic multinodular goiter (principal)
CPT/HCPCS: 76536

== ENCOUNTER → 2022-10-23 | Outpatient (CLI) | payer MEDICARE ==
--- NOTE | 2022-10-23 16:25 | Diagnostic Imaging Report ---
PROCEDURE: US Thyroid. TECHNIQUE: Multiple Real-time grayscale images were obtained of the thyroid in various projections. INDICATION: Multinodular goiter. COMPARISON: 03/07/2022. FINDINGS: The right thyroid lobe is enlarged and heterogeneous at 5.7 x 2.8 x 2.8 cm. A hypoechoic dominant solid mass in the lower pole measuring 2.1 x 2.1 cm is unchanged from the prior exam. A midpole nodule, mixed solid/cystic, measuring 1.9 cm is stable. An upper pole nodule is 1.3 cm showing no substantial change. The left thyroid lobe is enlarged, heterogeneous, and multinodular measuring 4.5 x 2.1 x 1.5 cm. It contains a 1.1 cm stable solid mass in its upper pole as well as a mixed solid/cystic hypoechoic nodule in the mid pole at 9 mm, unchanged. IMPRESSION: No significant change in the multiple bilateral thyroid nodules. Dictated by: Dictated on workstation # [id number]
== END ==
LOC: RAD 11:44
PROVIDERS: ATTEND Otolaryngology Otolaryngology/Facial Plastic Surgery
DX: E04.2 Nontoxic multinodular goiter (principal)
CPT/HCPCS: 76536

== ENCOUNTER → 2023-05-08 | Outpatient (CLI) | payer MEDICARE ==
--- NOTE | 2023-05-08 15:55 | Diagnostic Imaging Report ---
PROCEDURE: US Thyroid. TECHNIQUE: Multiple real-time grayscale images were obtained of the thyroid in various projections. INDICATION: Goiter. Compared with exam 10/23/2022. The right thyroid lobe is enlarged, heterogeneous and multinodular measuring 6.0 x 2.5 x 2.4 cm. A dominant mass in the lower pole measures along axis of 1.8 cm today previously 2 cm, it is isoechoic to slightly hypoechoic. Additional masses in its mid to upper pole measured 1.1 and 0.8 cm maximal also each measuring smaller than on prior. The left thyroid lobe 4.7 x 1.4 x 1.6 cm, contains a solitary 8 mm maximal diameter hypoechoic nodule previously measuring 1.1 cm. IMPRESSION: Bilateral thyroid masses smaller than on prior with no adverse development, largest lesion on the right is a 2 cm and a TIRADS 4 mass. Given the a favorable changes, followup in one year's time suggested. Dictated by: Dictated on workstation # [id number]
== END ==
LOC: RAD 12:25
PROVIDERS: ATTEND Otolaryngology Otolaryngology/Facial Plastic Surgery
DX: E04.2 Nontoxic multinodular goiter (principal)
CPT/HCPCS: 76536